=== PATIENT | female | born 1990 | race Caucasian/White ===

== ENCOUNTER 2020-08-08 08:11 | Outpatient (REF) | payer OTHER, SELFPAY | END 2020-08-08 08:12 | disposition home or self-care (01) | LOC: CF 08:11 | PROVIDERS: PCP Physician Assistant; Referring Provider Physician Assistant; Visit Provider Advanced Practice Midwife | DX: Z01.419 Encounter for gynecological examination (general) (routine) without abnormal findings (principal); Z30.09 Encounter for other general counseling and advice on contraception | CPT/HCPCS: 88142; 99395 ==

== ENCOUNTER 2020-08-11 10:28 | Outpatient (REF) | payer OTHER, SELFPAY ==
[2020-08-11 17:14] LABS: COVID-19 Test Negative (Negative)
== END 2020-08-11 10:29 | disposition home or self-care (01) ==
LOC: HO.LAB 10:28
PROVIDERS: Visit Provider Internal Medicine
DX: Z20.828 Contact with and (suspected) exposure to other viral communicable diseases (principal)
CPT/HCPCS: 36415; 87635

== ENCOUNTER 2020-08-25 09:09 | Outpatient (REF) | payer OTHER, SELFPAY ==
[2020-08-25 09:27] LABS: COVID-19 Test Negative (Negative)
== END 2020-08-25 09:10 | disposition home or self-care (01) ==
LOC: HO.LAB 09:09
PROVIDERS: Visit Provider Internal Medicine
DX: Z20.828 Contact with and (suspected) exposure to other viral communicable diseases (principal)
CPT/HCPCS: 87635

== ENCOUNTER → 2020-10-21 11:46 | Outpatient (BNVA) | payer OTHER, SELFPAY | PROVIDERS: Visit Provider Advanced Practice Midwife | DX: Z30.433 Encounter for removal and reinsertion of intrauterine contraceptive device (principal) | CPT/HCPCS: 58300; 58301 ==

== ENCOUNTER 2020-11-25 16:40 | Outpatient (REF) | payer OTHER, SELFPAY | END 2020-11-25 16:41 | disposition home or self-care (01) | LOC: HO.LAB 16:40 | PROVIDERS: Visit Provider Internal Medicine | DX: Z20.822 Contact with and (suspected) exposure to COVID-19 (principal) | CPT/HCPCS: 36415; C9803; U0003 ==

== ENCOUNTER 2020-12-25 07:47 | Outpatient (REF) | payer OTHER, SELFPAY ==
[2020-12-25 07:58] LABS: COVID-19 Test Positive (Negative)
== END 2020-12-25 07:48 | disposition home or self-care (01) ==
LOC: HO.EMPCOV 07:47
PROVIDERS: Visit Provider Internal Medicine
DX: Z20.822 Contact with and (suspected) exposure to COVID-19 (principal)
CPT/HCPCS: 36415; 87635; C9803

== ENCOUNTER 2021-08-20 08:35 | Emergency (ER) | payer OTHER, MEDICAID, SELFPAY ==
[2021-08-20 09:06] VITALS: BP 132/74; PULSE 71; RESP 18; TEMP 36.9; O2SAT 96; BMI 31.6
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
== END 2021-08-20 10:08 | disposition home or self-care (01) ==
PROVIDERS: Emergency Provider Emergency Medicine
DX: Z04.1 Encounter for examination and observation following transport accident (principal)
CPT/HCPCS: 99283

== ENCOUNTER 2023-06-07 08:32 | Outpatient (AMB) | payer OTHER, SELFPAY ==
--- NOTE | 2023-06-07 08:34 | MHC.OFFVIS ---
Intake Vital Signs 06/07/23 08:36 Height 5 ft 5 in Weight 192 lb BMI 31.9 BP 120/76 Intake Visit Reasons: Annual/ ? IUD removal Intake Note: patient wants to remove IUD The patient agreed to use of a emergency medical dispatcher during this encounter. Scribed for APRIL Barrett by Tiera Dorantes emergency medical dispatcher, on 06/07/2023 at 8:45 am EST. General Counselor: General Counselor Present (Suzette) Allergies No Known Allergies Allergy (Verified 06/07/23 08:37) HPI HPI Comments History of Present Illness Details She is a premenopausal woman presenting for annual exam and IUD removal due to planning a future next year. She admits to eating healthy and tries to stay active with exercise. Currently not sexually active due to being incarcerated but will be released next year April. Hx of constipation while taking iron RX. Denies vaginal itching and irritation. Admits vaginal discharge. STD screening offered; she accepts. STD blood work offered; she declines. Denies family hx of breast, colon and ovarian cancer. Last pap smear 08/08/20. See procedure note. [facility] Medical History Asthma Depression with anxiety Surgical History No history of previous surgery Family History Father HTN (hypertension) Skin cancer Insomnia Maternal Grandmother Diabetes mellitus HTN (hypertension) Multiple myeloma Obese Paternal Grandmother Oral cancer Mother HTN (hypertension) Maternal Grandfather No problems noted. Paternal Grandfather No problems noted. Sister No problems noted. Son No problems noted. Son No problems noted. Social History Household Members: Children Household Members Other:: 2 sons (7 and 5 y/o in 2019) Alcohol intake: never Sexual orientation: Straight/Heterosexual Gender identity: Female Female Reproductive History Menstrual Total pregnancies: 2 Full term: 2 Number of Living Children: 2 Date of last pap smear: 08/08/20 (neg) Physical Exam Vital Signs: Last Vital Signs BP 120/76 06/07/23 08:36 BMI result Body Mass Index 31.9 Const General: cooperative, healthy appearing, no acute distress, well developed and alert Orientation/consciousness: patient oriented x3 HEENT Head: Yes normal to inspection Eyes General: appearance normal, both eyes and all related structures Neck Neck: Yes normal visual inspection Thyroid: Thyroid normal Chest Chest palpation & inspection: normal inspection of the chest Breast/axilla inspection: normal inspection of the breasts (no puckering, dimpling, peau de orange, retraction, discharge, masses) Breast/axilla palpation: normal palpation of the breasts Resp Effort & Inspection: normal respiratory effort GI Inspection: Yes normal to inspection Palpation (GI): Soft to palpation (to palpation) Rectal Exam - Female: deferred General: Yes bladder normal to inspection External Female Exam: normal external appearance and normal appearance of the urethra Speculum Exam - Vagina: normal appearance of the vagina, normal palpation and normal vaginal discharge Speculum Exam - Cervix: normal appearance of the cervix, normal palpation and Other cervical findings present (bled slightly with pap; IUD strings visible) Bimanual exam- vagina & uterus: normal palpation and normal palpation Bimanual Exam- Adnexa, other: normal adnexae and no masses Skin General skin exam: no rashes or lesions noted Neuro General: patient oriented x3 Cognition (Neuro): normal cognition Extrem General: Yes normal to inspection Psych Attitude: cooperative Thought process: Normal thought process present Office Procedures IUD Insert/Removal Details Details: HPI She was counseled and consented for procedure. She is aware of risks for bleeding, pain, infection, and injury to bowel or bladder. Procedure The patient was placed in the dorsal lithotomy position. A speculum was inserted vaginally, and the cervix and strings were visualized at the os. A ring forcep was utilized, and the patient was asked to give a deep cough while the strings were grasped and gently tugged at the same time, removing the IUD device intact. Minimal bleeding was observed. All of the equipment was removed. The patient tolerated the procedure well and left the office in good condition. IUD successfully removed today. Plan Monitor and track periods. Warnings reviewed with patient. Instructions given to call if temp >100.4, flu like sx, SOB, fatigue, lightheadedness/dizziness, abd pain, bloating or abd distention, bowel changes including rectal bleeding, bladder changes, foul odor or heavy vaginal bleeding. She will call office with any questions or concerns. [id number] Removal Procedure code (CPT) selection complete Assessment & Plan Assessment & Plan (1) Well woman exam with routine gynecological exam: Code(s): Z01.419 - Encounter for gynecological examination (general) (routine) without abnormal findings Plan: Discussed: Current recommendations for pap smears per ASCCP guidelines Breast awareness and periodic self breast exams. Maintaining a healthy lifestyle including a well balanced diet and routine exercise. Monitor menses, use of a Flow Shahnaz. PNV RX sent to pharmacy. All of her questions and concerns were addressed to the best of my ability. RTO in one year for AG. See procedure note. (2) Vaginal discharge: Code(s): N89.8 - Other specified noninflammatory disorders of vagina (3) Encounter for IUD removal: Code(s): Z30.432 - Encounter for removal of intrauterine contraceptive device Orders: Orders Bacterial Vaginosis Panel Today N89.8 - Other specified noninflammatory disorders of vagina CT NG by PCR Today N89.8 - Other specified noninflammatory disorders of vagina, Z20.2 - Contact with and (suspected) exposure to infections with a predominantly sexual mode of transmission Pap Smear Today Z01.419 - Encounter for gynecological examination (general) (routine) without abnormal findings Medications: New PNV,calcium [id number] acid 27 mg iron- 1 mg ( Vitamins Plus Low Iron) 1 tab PO DAILY 90 tabs 4RF Coding Level of Care Code Est Pt Prev Care [id number]) Diagnoses Well woman exam with routine gynecological exam Z01.419 Vaginal discharge N89.8 Encounter for IUD removal Z30.432 CPT Codes Details - CPT: 43695-VGS Removal ([id number]) Comment Add a modifier for IUD removal
[2023-06-07 08:36] VITALS: BP 120/76; BMI 31.9
== END 2023-06-07 09:06 | disposition home or self-care (01) ==
PROVIDERS: Visit Provider Advanced Practice Midwife
DX: Z01.419 Encounter for gynecological examination (general) (routine) without abnormal findings (principal); N89.8 Other specified noninflammatory disorders of vagina; Z30.432 Encounter for removal of intrauterine contraceptive device
CPT/HCPCS: 58301; 99395

== ENCOUNTER 2023-06-07 08:32 | Outpatient (REF) | payer OTHER, SELFPAY | END 2023-06-07 08:33 | disposition home or self-care (01) | LOC: HO.LAB 08:32 | PROVIDERS: Visit Provider Advanced Practice Midwife | DX: Z01.419 Encounter for gynecological examination (general) (routine) without abnormal findings (principal); N89.8 Other specified noninflammatory disorders of vagina; Z30.432 Encounter for removal of intrauterine contraceptive device | CPT/HCPCS: 58301 ==

== ENCOUNTER 2023-06-07 08:56 | Outpatient (REF) | payer OTHER, SELFPAY ==
[2023-06-14 06:34] LABS: HPV mRNA E6/E7 rflx Not Detected (Not Detected)
== END 2023-06-07 08:57 | disposition home or self-care (01) ==
LOC: HO.LNP 08:56
PROVIDERS: Visit Provider Advanced Practice Midwife
DX: N89.8 Other specified noninflammatory disorders of vagina (principal); Z20.2 Contact with and (suspected) exposure to infections with a predominantly sexual mode of transmission
CPT/HCPCS: 87624; 88142

== ENCOUNTER 2023-06-07 15:46 | Outpatient (REF) | payer OTHER, SELFPAY ==
[2023-06-08 15:33] LABS: BV Int Neg Control Negative (Negative); BV Int Pos Control Positive (Positive)
[2023-06-09 12:37] LABS: CT PCR NOT DETECTED (Not Detect.); NG PCR NOT DETECTED (Not Detect.)
== END 2023-06-07 15:47 | disposition home or self-care (01) ==
LOC: HO.LNP 15:46
PROVIDERS: Visit Provider Advanced Practice Midwife
DX: N89.8 Other specified noninflammatory disorders of vagina (principal); Z20.2 Contact with and (suspected) exposure to infections with a predominantly sexual mode of transmission
CPT/HCPCS: 0353U; 87480; 87510; 87660

== ENCOUNTER 2023-07-08 09:11 | Outpatient (AMB) | payer OTHER, SELFPAY ==
--- NOTE | 2023-07-08 08:53 | A.OFFPC_ITS ---
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 Intake Note: Pt is here today as a New Patient to est care and for her PE Is last menstrual period known: Yes Last menstrual period: 06/27/23 Allergies No Known Allergies Allergy (Verified 07/08/23 09:25) Medication List - Last Reconciled 07/08/23 by Arti June MD PNV,calcium 47-inpa-qpxcc acid 27 mg iron- 1 mg ( Vitamins Plus Low Iron) 1 tab PO DAILY valacyclovir (Valtrex) 500 mg PO BID PRN 3 days Tobacco use date assessed: 07/08/23 Dental Screening Dental Screen Date: 07/08/23 Did you have a dental visit in the last 12 months?: Yes Did you have a dental problem in the last 6 months where you did not have access to dental care?: No Was dental information given to patient?: 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 She has exercise-induced bronchospasm, has had since childhood when she was playing sports, would like a refill on her albuterol inhaler . Has history of depression and anxiety, does not want to start any medication at present time or see a therapist, does not feel the need for one, as she is able to control it through behavioral techniques. Has history of genital warts, would like a prescription for about checks to have on hand as needed. Rarely gets any outbreaks. [facility] Medical History Depression with anxiety Exercise induced bronchospasm History of wrist fracture Hx of herpes genitalis Obesity (BMI 30.0-34.9) Surgical History History of surgery on right wrist Family History Father HTN (hypertension) Skin cancer Insomnia Substance use disorder Mental health disorder Maternal Grandmother Diabetes mellitus HTN (hypertension) Multiple myeloma Obese Mental health disorder Paternal Grandmother Oral cancer Mental health disorder Mother HTN (hypertension) Substance use disorder Mental health disorder Maternal Grandfather Substance use disorder Mental health disorder Paternal Grandfather Mental health disorder Sister Substance use disorder Mental health disorder Son No problems noted. Son No problems noted. Paternal Uncle Substance use disorder Mental health disorder Social History Household Members: Children Household Members Other:: 2 sons (7 and 5 y/o in 2020) Housing: House Alcohol intake: never Patient Tobacco Use Status: Never used Tobacco e-Cigarette/Vaping Use: Never Used service: No Current occupational status: employed Sexual orientation: Straight/Heterosexual Gender identity: Female Cognitive needs: No Hearing needs: No Vision needs: Yes Female Reproductive History Menstrual Date of last menstrual period: 06/27/23 Questionnaire PHQ-9 Over the last 2 weeks, how often have you been bothered by any of the following problems? 1. Little interest or pleasure in doing things: not at all 2. Feeling down, depressed, or hopeless: several days 3. Trouble falling or staying asleep, or sleeping too much: more than half the days 4. Feeling tired or having little energy: several days 5. Poor appetite or overeating: several days 6. Feeling bad about yourself - or that you are a failure or have let yourself or your family down: not at all 7. Trouble concentrating on things, such as reading the newspaper or watching television: several days 8. Moving or speaking so slowly that other people could have noticed. Or the opposite - being so fidgety or restless that you have been moving around a lot more than usual: not at all 9. Thoughts that you would be better off or of hurting yourself in some way: not at all Total score: 6 Depression Screening Interpretation: Positive (Intermittent, declines starting medication at present time able to control through behavioral techniques, declines referral for counseling ) Depression Screening Follow-up: Existing condition 62090 - PHQ-9 Billing: Yes Source: Developed by Drs. Gene Iverson, Sydney Ponce, Jacob Rodas and colleagues, with an educational evelina from [employer]. Thrive Questionnaire Date Thrive assessed: 07/08/23 I am a: Patient What is your living situation today?: I have a steady place to live Within the past 12 months, did the food you bought not last and you didn't have the money to get more?: Never true Within the past 12 months, did you worry whether your food would run out before you got money to buy more?: Never true Do you have trouble paying for medicines?: No Do you have trouble getting transportation to medical appointments?: No Do you have trouble paying your heating and electricity bill?: No Do you have trouble taking care of your child, family member or friend?: No Do you have trouble with day-to-day activities such as bathing, preparing meals, shopping, managing finances, etc.?: No Are you currently unemployed and looking for a job?: No Are you interested in more education?: No AUDIT C Alcohol Use Questionnaire (AUDIT-C) 1. How often do you have a drink containing alcohol?: Never Total Score: 0 SOM-7 AMB Questionnaire SOM-7 Date SOM - 7 assessed: 07/08/23 Feeling nervous, anxious, or on edge: 0 = Not at all Not being able to stop or control worryin = Not at all Worrying too much about different things: 0 = Not at all Trouble relaxin = Not at all Being so restless that it is hard to sit still: 0 = Not at all Becoming easily annoyed or irritable: 0 = Not at all Feeling afraid as if something awful might happen: 0 = Not at all Total SOM-7 score (0-4 normal; 5-9 mild; 10-14 moderate; 15-21 severe): 0 Source: Developed by Drs. Gene Iverson, Sydney Ponce, Jacob Rodas and colleagues, with an educational evelina from [employer]. SOM-7 Assessment Billing SOM-7 Assessment Tool: SOM-7 Assessment 52775 Review of Systems Const Denies body aches, Reports difficulty sleeping (Maintaining sleep), Denies fatigue, Denies fever(s), Denies headache(s), Denies lethargy, Denies stops breathing during sleep and Denies weakness Eyes Details: Goes to [facility] Reports blurry vision (Myopia), Denies change in vision, Denies eye discharge, Denies itchy eyes and Reports requires corrective lenses ENT Denies dizziness, Denies headache(s), Denies nasal congestion, Denies nasal discharge and Denies sore throat Card Denies chest pain, Denies lightheadedness, Denies palpitations and Denies dyspnea Resp Denies chest congestion, Denies cough, Denies dyspnea and Denies wheezing GI Denies abdominal pain, Denies change in bowel habits and Denies heartburn Denies hematuria, Denies urinary frequency, Denies dysuria and Denies urinary urgency Musc Details: Occasional right knee pain swelling Skin/Breast Denies breast pain, Denies breast mass, Denies lesions and Denies rash Neuro Denies dizziness, Denies headache(s) and Denies weakness Psych Reports as per HPI and Reports anxiety (Situational) Endo Denies fatigue, Denies polydipsia, Denies polyuria and Denies palpitations Donny/Lymph Denies easy bruising Aller/Immun Denies itchy eyes, Denies seasonal rhinorrhea and Denies wheezing Physical exam (Primary Care) Vital Signs: Last Vital Signs Pulse 79 07/08/23 08:58 BP 120/82 07/08/23 08:58 Pulse Ox 98 07/08/23 08:58 Oxygen Delivery Method Room Air 07/08/23 08:58 BMI result Body Mass Index 31.8 BMI Assessment/Plan discussion: High BMI High, discussed plan: dietary and physical activity Tobacco/Smoking Status: Tobacco use Status Tobacco use date assessed 07/08/23 07/08/23 08:58 Patient Tobacco Use Status Never used Tobacco 07/08/23 09:16 e-Cigarette/Vaping Use Never Used 07/08/23 09:16 PHQ-9: PHQ-9 Score PHQ-9: Total score 6 07/11/23 16:53 Depression Screening Interpretation: Positive (Intermittent, declines starting medication at present time able to control through behavioral techniques, declines referral for counseling ) Depression Screening Follow-up: Existing condition Thrive Assessment: Date of Thrive Assessment Date Thrive assessed 07/08/23 07/08/23 08:58 Const General: healthy appearing, comfortable and no acute distress Nutritional Appearance: obese Orientation/consciousness: patient oriented x3 HENMT Head: Yes normocephalic General nose exam: Normal external nose present Face and sinus: Yes face symmetric Mouth: Normal oral and palatal mucosa present, tongue normal, oropharynx normal and moist mucous membranes Teeth and gingiva: dentition normal Eyes General: appearance normal, both eyes and all related structures Periorbital: periorbital findings normal Eyelids: Yes eyelids normal Conjunctivae: conjunctivae normal Sclerae: sclerae normal Pupils: Equal, round and reactive pupils present EOM: EOMs intact bilaterally Neck Neck: Yes full ROM and Yes no lymphadenopathy Thyroid: Thyroid normal (Nonpalpable) Chest Chest palpation & inspection: normal inspection of the chest and normal palpation of entire chest wall Breast/axilla palpation: normal palpation of the breasts Resp Effort & Inspection: normal respiratory effort and able to speak in complete sentences Auscultation: clear to auscultation bilaterally Cardio Rate: regular rate Rhythm: regular rhythm Heart sounds: S1 normal heart sound present and S2 normal heart sound present GI Palpation (GI): Soft to palpation, nontender, no guarding and no masses Auscultation: normal bowel sounds Other: Goes to [facility] [place] [facility] General: Yes no CVA tenderness Back/Spine/Pelvis Back: no CVA tenderness and No back tenderness Skin General skin exam: no rashes or lesions noted Neuro General: patient oriented x3, gait normal, tone normal, Normal light touch and pain sensation, no focal motor deficits and CN's II-XI intact bilaterally Cranial nerves: Yes Equal, round and reactive pupils present Cognition (Neuro): normal cognition Gait exam (Neuro): Normal gait present Psych Appearance: grossly normal and well kempt Mental Status: mental status grossly normal Speech and movement: Normal speech and movement present Affect: normal affect Attitude: cooperative Thought process: Normal thought process present Thought content: Normal thought content present Immunizations Boostrix Tdap Performing Provider: Arti June MD Administered by: Belle Mitchell CMA on 07/08/23 09:25 Dose Route Admin Location Lot Number Expiration Date NDC Wagon [employer] 0.5 mL IM Right Deltoid [id number] 08/17/25 [id number] [employer] VIS Given Date VIS Provided VIS Publication Date 07/08/23 Single Vaccine 21 Eligibility Eligibility Date Funding Source Not VFC Eligible 07/08/23 Private Assessment and Plan Assessment & Plan (1) Annual visit for general adult medical examination with abnormal findings: Code(s): Z00.01 - Encounter for general adult medical examination with abnormal findings Plan: Will check appropriate labs. Continue dental visit every 6 months and regular eye exams, at least every 2 years. Take adequate calcium in diet and vitamin-D 3 at 2000 IU per cap once a day, in addition to weight-bearing exercises to help maintain good muscle tone and weight control. Instructed to do self-breast exam, and recommended to get yearly mammogram, starting at age 40. Goes to [facility] [place] for her routine Pap and pelvic exam, up-to-date . Declines getting COVID vaccinations and flu shots, Tdap given today (2) Exercise induced bronchospasm: Code(s): J45.990 - Exercise induced bronchospasm Plan: Prescription sent for her albuterol inhaler 2 inhalations every 6 hours as needed for episodes of bronchospasm/wheezing (3) Obesity (BMI 30.0-34.9): Code(s): E66.9 - Obesity, unspecified Plan: Recommended focusing on improving your health instead of dieting. : Eat Mediterranean diet, limit foods high in fat, sugar, and calories, eat slowly, pay attention to portion sizes, plan your meals ahead of time, start regular physical activity 150 minutes of moderate intensity exercise or 90 minutes/week of vigorous exercise and increase water intake. Rx also sent for phentermine 30 mg per capsule to take once a day to help with weight loss, will check weight again in a month or starting medication Orders: Orders Alanine Aminotransferase 07/08/23 E66.9 - Obesity, unspecified, J45.990 - Exercise induced bronchospasm, Z00.01 - Encounter for general adult medical examination with abnormal findings Aspartate Amino Transferase 07/08/23 E66.9 - Obesity, unspecified, J45.990 - Exercise induced bronchospasm, Z00.01 - Encounter for general adult medical examination with abnormal findings Basic Metabolic Panel Fasting 07/08/23 E66.9 - Obesity, unspecified, J45.990 - Exercise induced bronchospasm, Z00.01 - Encounter for general adult medical examination with abnormal findings Lipid Panel 07/08/23 E66.9 - Obesity, unspecified, J45.990 - Exercise induced bronchospasm, Z00.01 - Encounter for general adult medical examination with abnormal findings Vitamin D 25-OH Total 07/08/23 E66.9 - Obesity, unspecified, J45.990 - Exercise induced bronchospasm, Z00.01 - Encounter for general adult medical examination with abnormal findings Complete Blood Count Auto Diff 07/08/23 E66.9 - Obesity, unspecified, J45.990 - Exercise induced bronchospasm, Z00. - Encounter for general adult medical examination with abnormal findings TDaP Immunization 07/08/23 Z23 - Encounter for immunization Medications: New albuterol sulfate 90 mcg/actuation 2 inhalations inhalation Q6H PRN 1 ea 1RF shortness of breath or wheezing J45.990 - Exercise induced bronchospasm phentermine must administer 2 hours after breakfast 30 mg PO DAILY 30 caps 0RF Coding Level of Care Code New Pt Prev Care 18-39yr(93037 Diagnoses Annual visit for general adult medical examination with abnormal findings Exercise induced bronchospasm J45.990 Obesity (BMI 30.0-34.9) E66.9 Additional Codes SOM-7 Assessment Billing - SOM-7 Assessment Tool: SOM-7 Assessment 81708 ([id number])
[2023-07-08 08:58] VITALS: BP 120/82; PULSE 79; O2SAT 98; BMI 31.8
== END 2023-07-08 12:24 | disposition home or self-care (01) ==
PROVIDERS: Visit Provider Internal Medicine
DX: Z23 Encounter for immunization (principal)
CPT/HCPCS: 90471; 90715; 99385

== ENCOUNTER 2023-07-19 08:18 | Outpatient (REF) | payer OTHER, SELFPAY ==
[2023-07-19 11:22] LABS: MANUAL DIFF FLAG NO
[2023-07-19 12:07] LABS: Alanine Aminotransferase 19 U/L (0-31); Anion Gap 11 (12-20); Aspartate Amino Transferase 21 U/L (5-31); Basophils Percent Auto 0.3 % (0-2); Blood Urea Nitrogen 8 mg/dL (9-16); Calcium 9.4 mg/dL (8.4-10.2); Carbon Dioxide 25 mmol/L (22-29); Chloride 107 mmol/L (96-108); Cholesterol 201 mg/dL (<200); Eosinophils Absolute Auto 0.1 X10*3/uL (0.0-0.4); Eosinophils Percent Auto 1.2 % (0-4); Estimated Glomerular Filt Rate > 60; Glucose Fasting 97 mg/dL (60-99); HDL Cholesterol 52 mg/dL (>40); Hematocrit 39.7 % (37.0-47.0); Hemoglobin 13.4 g/dl (12.0-16.0); Imm Gran Abs Auto 0.02 X10*3/uL (0.00-0.03); Imm Gran Pct Auto 0.3 % (0.0-0.4); LDL Cholesterol Calculated 135 mg/dL (<100); Lymphocytes Absolute Auto 1.9 X10*3/uL (1.2-4.9); Lymphocytes Percent Auto 27.8 % (20-40); Mean Corpuscular HGB Conc 33.8 g/dl (31.0-35.0); Mean Corpuscular Hemoglobin 30.5 pg (27.0-33.0); Mean Corpuscular Volume 90.2 fL (80.0-98.0); Monocytes Absolute Auto 0.4 X10*3/uL (0.1-1.2); Monocytes Percent Auto 6.3 % (2-11); Neutrophils Absolute Auto 4.4 x10*3/uL (2.0-8.3); Neutrophils Percent Auto 64.1 % (45-73); Platelet Count 148 X10*3/uL (160-400); Potassium 3.8 mmol/L (3.3-5.1); Red Cell Distribution Width 12.6 % (11.0-16.0); Sodium 139 mmol/L (135-145); Triglycerides 74 mg/dL (<150); White Blood Count 6.9 X10*3/uL (4.8-10.8)
[2023-07-19 12:10] LABS: Vitamin D 25-OH Total 26.1 ng/mL (>30)
[2023-07-19 13:23] LABS: Binax Internal Control QC Valid; Binax Now Covid-19 Ag Negative (Negative); Binax Performed by: PAULP
== END 2023-07-19 08:19 | disposition home or self-care (01) ==
LOC: HO.HMGCLDS 08:18
PROVIDERS: PCP Internal Medicine; Visit Provider Internal Medicine
DX: Z00.01 Encounter for general adult medical examination with abnormal findings (principal); Z20.822 Contact with and (suspected) exposure to COVID-19; E66.9 Obesity, unspecified; J45.990 Exercise induced bronchospasm
CPT/HCPCS: 36415; 80048; 80061; 82306; 84450; 84460; 85025; 87811; C9803

== ENCOUNTER 2023-09-27 14:49 | Outpatient (REF) | payer OTHER, SELFPAY ==
[2023-09-27 15:10] LABS: Binax Internal Control QC Valid; Binax Now Covid-19 Ag Negative (Negative); Binax Performed by: PAULP
== END 2023-09-27 14:50 | disposition home or self-care (01) ==
LOC: HO.HMGCLDS 14:49
PROVIDERS: PCP Internal Medicine; Visit Provider Nurse Practitioner Primary Care
DX: Z11.52 Encounter for screening for COVID-19 (principal); R05.9 Cough, unspecified
CPT/HCPCS: 87811; C9803

== ENCOUNTER 2024-02-08 11:45 | Outpatient (AMB) | payer OTHER, SELFPAY ==
[2024-02-08 12:05] VITALS: BP 118/84; PULSE 69; O2SAT 99; BMI 33.3
--- NOTE | 2024-02-08 12:05 | MHC.PC.OV ---
Vital Signs 02/08/24 12:05 Height 5 ft 5 in Weight 200 lb BMI 33.3 BP 118/84 Blood Pressure Location Rt brachial Position Sitting Pulse 69 Pulse Source Pulse Oximeter Pulse Oximetry (%) 99 Oxygen Delivery Method Room Air Intake Visit Reasons: Weight loss Intake Note: Pt is here today concern regarding her weight Allergies No Known Allergies Allergy (Verified 02/08/24 13:47) Medication List - Last Reconciled 02/08/24 by Arti June MD hydroxyzine HCl 10 mg PO BEDTIME phentermine 30 mg PO DAILY Tobacco use date assessed: 02/08/24 Dental Screening Dental Screen Date: 02/08/24 HPI Weight loss HPI Details 33-year-old lady here today for follow-up. Has been having hard time losing weight. Initially was placed on phentermine 30 mg daily which has been helping curb her appetite however it has also caused some problems with initiating sleep. She has stopped taking phentermine but gained all the weight back that she lost initially. She has also been having a lot of anxiety attacks, under lot of stress at work and at home. Patient admits to have been stress eating, skips breakfast, eats snacks during the day and tends to eat a bigger meal at night and does a lot of bedtime snacking. [facility] Medical History (Updated 02/08/24 @ 13:59 by Arti June MD) Mixed anxiety and depressive disorder Vitamin D deficiency Hypercholesterolemia without hypertriglyceridemia Thrombocytopenia History of wrist fracture Hx of herpes genitalis Obesity (BMI 30.0-34.9) Exercise induced bronchospasm Depression with anxiety Surgical History History of surgery on right wrist Family History Father HTN (hypertension) Skin cancer Insomnia Substance use disorder Mental health disorder Maternal Grandmother Diabetes mellitus HTN (hypertension) Multiple myeloma Obese Mental health disorder Paternal Grandmother Oral cancer Mental health disorder Mother HTN (hypertension) Substance use disorder Mental health disorder Maternal Grandfather Substance use disorder Mental health disorder Paternal Grandfather Mental health disorder Sister Substance use disorder Mental health disorder Son No problems noted. Son No problems noted. Paternal Uncle Substance use disorder Mental health disorder Social History Household Members: Children Household Members Other:: 2 sons (7 and 5 y/o in 2020) Housing: House Alcohol intake: never Patient Tobacco Use Status: Never used Tobacco e-Cigarette/Vaping Use: Never Used service: No Current occupational status: employed Sexual orientation: Straight/Heterosexual Gender identity: Female Cognitive needs: No Hearing needs: No Vision needs: Yes Questionnaire PHQ-9 Over the last 2 weeks, how often have you been bothered by any of the following problems? 1. Little interest or pleasure in doing things: not at all 2. Feeling down, depressed, or hopeless: several days 3. Trouble falling or staying asleep, or sleeping too much: more than half the days 4. Feeling tired or having little energy: more than half the days 5. Poor appetite or overeating: nearly every day 6. Feeling bad about yourself - or that you are a failure or have let yourself or your family down: not at all 7. Trouble concentrating on things, such as reading the newspaper or watching television: not at all 8. Moving or speaking so slowly that other people could have noticed. Or the opposite - being so fidgety or restless that you have been moving around a lot more than usual: not at all 9. Thoughts that you would be better off or of hurting yourself in some way: not at all Total score: 8 Depression Screening Interpretation: Positive (Does not want to start any maintenance medication for depression, declined referral for counseling) Depression Screening Follow-up: Existing condition, New Medication prescribed and Community Mental Health Worker F/U Depression Screening Done: Yes 87172 - PHQ-9 Billing: Yes Source: Developed by Drs. Gene Iverson, Sydney Ponce, Jacob Rodas and colleagues, with an educational evelina from [employer]. Thrive Questionnaire Date Thrive assessed: 02/08/24 I am a: Patient What is your living situation today?: I have a steady place to live Within the past 12 months, did the food you bought not last and you didn't have the money to get more?: Never true Within the past 12 months, did you worry whether your food would run out before you got money to buy more?: Never true Do you have trouble paying for medicines?: No Do you have trouble getting transportation to medical appointments?: No Do you have trouble paying your heating and electricity bill?: No Do you have trouble taking care of your child, family member or friend?: No Do you have trouble with day-to-day activities such as bathing, preparing meals, shopping, managing finances, etc.?: No Are you currently unemployed and looking for a job?: No Are you interested in more education?: No THRIVE Score: 0 AUDIT C Alcohol Use Questionnaire (AUDIT-C) 1. How often do you have a drink containing alcohol?: Never Total Score: 0 SOM-7 AMB Questionnaire SOM-7 Date SOM - 7 assessed: 02/08/24 Feeling nervous, anxious, or on edge: 3 = Nearly every day Not being able to stop or control worryin = Nearly every day Worrying too much about different things: 3 = Nearly every day Trouble relaxin = Nearly every day Being so restless that it is hard to sit still: 0 = Not at all Becoming easily annoyed or irritable: 3 = Nearly every day Feeling afraid as if something awful might happen: 0 = Not at all Total SOM-7 score (0-4 normal; 5-9 mild; 10-14 moderate; 15-21 severe): 15 Source: Developed by Drs. Gene Iverson, Sydney Ponce, Jacob Rodas and colleagues, with an educational evelina from [employer]. SOM-7 Assessment Billing SOM-7 Assessment Tool: SOM-7 Assessment 34237 (Started on hydroxyzine to take as needed) Review of Systems Const Denies body aches, Reports difficulty sleeping (Maintaining sleep), Denies fever(s), Denies lethargy, Denies weakness and Reports weight gain Eyes Details: Goes to [facility]NT Reports no additional complaints Card Denies chest pain, Denies lightheadedness and Denies dyspnea Resp Denies chest congestion, Denies cough and Denies dyspnea Neuro Denies weakness Psych Reports as per HPI Physical exam (Primary Care) Vital Signs: Last Vital Signs Pulse 69 02/08/24 12:05 BP 118/84 02/08/24 12:05 Pulse Ox 99 02/08/24 12:05 Oxygen Delivery Method Room Air 02/08/24 12:05 BMI result Body Mass Index 33.3 BMI Assessment/Plan discussion: High BMI High, discussed plan: dietary and physical activity Tobacco/Smoking Status: Tobacco use Status Tobacco use date assessed 02/08/24 02/08/24 12:23 Patient Tobacco Use Status Never used Tobacco 02/08/24 12:07 e-Cigarette/Vaping Use Never Used 02/08/24 12:07 PHQ-9: PHQ-9 Score PHQ-9: Total score 8 02/08/24 12:59 Depression Screening Interpretation: Positive (Does not want to start any maintenance medication for depression, declined referral for counseling) Depression Screening Follow-up: Existing condition, New Medication prescribed and Community Mental Health Worker F/U Thrive Assessment: Date of Thrive Assessment Date Thrive assessed 02/08/24 02/08/24 12:31 Const General: comfortable and no acute distress Nutritional Appearance: obese Orientation/consciousness: patient oriented x3 HENMT Head: Yes normocephalic General nose exam: Normal external nose present Face and sinus: Yes face symmetric Eyes General: appearance normal, both eyes and all related structures Neck Neck: Yes full ROM and Yes no lymphadenopathy Thyroid: Thyroid normal (Nonpalpable) Resp Effort & Inspection: normal respiratory effort and able to speak in complete sentences Neuro General: patient oriented x3, gait normal, tone normal, Normal light touch and pain sensation, no focal motor deficits and CN's II-XI intact bilaterally Cognition (Neuro): normal cognition Gait exam (Neuro): Normal gait present Psych Appearance: grossly normal and well kempt Mental Status: mental status grossly normal Speech and movement: Normal speech and movement present Affect: normal affect Attitude: cooperative Thought process: Normal thought process present Thought content: Normal thought content present Assessment and Plan Assessment & Plan (1) Obesity (BMI 30.0-34.9): Code(s): E66.9 - Obesity, unspecified Plan: Placed back on phentermine 30 mg per capsule to take once a day in the morning. Combined this with adherence to healthy eating habits and getting regular exercise, do not skip breakfast or lunch, avoid bedtime snacking, eating a lot of junk foods e.g. potato chips, Gabonese fries. (2) Mixed anxiety and depressive disorder: Code(s): F41.8 - Other specified anxiety disorders Plan: Does not want to start any medications at present time that she needs to take every day. Declines referral for counseling, will give her a prescription for hydroxyzine 10 mg per tablet, to try taking initially half a tablet or 5 mg at bedtime to help her sleep at night and may take an extra dose as needed during the day for acute anxiety attacks. Patient cautioned that side effects of this medicine is drowsiness, do not drive until she you know how this medicine will affect you Medications: New phentermine must administer 2 hours after breakfast 30 mg PO DAILY 30 caps 0RF hydroxyzine HCl 10 mg PO BEDTIME 30 tabs 0RF Difficulty sleeping Coding Level of Care Code Est Pt Level 4 (26042) Diagnoses Obesity (BMI 30.0-34.9) E66.9 Mixed anxiety and depressive disorder F41.8 Additional Codes SOM-7 Assessment Billing - SOM-7 Assessment Tool: SOM-7 Assessment 29650 ([id number])
== END 2024-02-08 13:50 | disposition home or self-care (01) ==
PROVIDERS: PCP Internal Medicine; Visit Provider Internal Medicine
DX: F41.8 Other specified anxiety disorders (principal); E66.9 Obesity, unspecified; Z68.33 Body mass index [BMI] 33.0-33.9, adult
CPT/HCPCS: 96127; 99214

== ENCOUNTER 2024-02-27 15:03 | Outpatient (REF) | payer OTHER, SELFPAY ==
--- NOTE | ~2024-02-27 | US_ITS ---
EXAMINATION: US PELVIS CLINICAL INFORMATION: Pelvic and perineal pain LMP (irregular, one week ago COMPARISON: Pelvic ultrasound 03/24/2013 TECHNIQUE: Ultrasound of the pelvis is performed using both transabdominal and transvaginal transducers along with Doppler. Transvaginal imaging is performed due to inadequate visualization transabdominally. FINDINGS: Uterus: The uterus is anteverted and measures 9.5 x 3.9 x 5.7 cm. No focal fibroid The endometrial thickness is 0.6 cm Adnexa: Both ovaries are visualized. There is normal color flow to the adnexa. There is no ovarian torsion. There is no pelvic ascites or fluid collection. Right ovary measures 3.4 x 1.8 x 2.4 cm. Volume 7.8 mL. Left ovary measures 3.2 x 2.5 x 1.9 cm. Volume 7.9 mL. US/US pelvic and transvaginal IMPRESSION: Normal pelvic ultrasound.
== END 2024-02-27 15:04 | disposition home or self-care (01) ==
LOC: HO.HMGCX 15:03
PROVIDERS: PCP Internal Medicine; Visit Provider Internal Medicine
DX: R10.2 Pelvic and perineal pain (principal); Z87.42 Personal history of other diseases of the female genital tract
CPT/HCPCS: 76830; 76856

== ENCOUNTER 2024-04-19 09:30 | Outpatient (REF) | payer OTHER, SELFPAY ==
[2024-04-19 13:27] LABS: HCG Quantitative < 2 mIU/mL
== END 2024-04-19 09:31 | disposition home or self-care (01) ==
LOC: HO.HMGCLDS 09:30
PROVIDERS: PCP Internal Medicine; Visit Provider Internal Medicine
DX: N92.6 Irregular menstruation, unspecified (principal)
CPT/HCPCS: 36415; 84702

== ENCOUNTER → 2024-08-22 10:07 | Outpatient (BNVA) | payer OTHER, SELFPAY | PROVIDERS: PCP Internal Medicine; Visit Provider Internal Medicine ==

== ENCOUNTER 2024-09-12 09:28 | Outpatient (AMB) | payer OTHER, SELFPAY ==
--- NOTE | 2024-09-12 09:29 | AM.OFFWIN_ITS ---
Intake Vital Signs 09/12/24 09:32 Weight 194 lb BP 110/76 Blood Pressure Location Rt brachial Position Sitting Pulse 88 Pulse Source Pulse Oximeter Temp 98.5 F Temp Source Oral Pulse Oximetry (%) 98 Oxygen Delivery Method Room Air Intake Visit Reasons: Congestion and bodyaches Patient Tobacco Use Status: Never used Tobacco Allergies No Known Allergies Allergy (Verified 09/12/24 09:33) HPI Congestion and bodyaches HPI Details This note is constructed using voice recognition software. While every effort has been made to ensure accuracy, conformal pad former errors may have been included. The patient is a 33 year old female who presents to the clinic today with sinus congestion and body aches for the past 2 days. She notes that yesterday she started with sinus congestion, she has been using generic Mucinex to help decrease the congestion, and then she developed body aches in her upper shoulder region bilaterally. She denies fever, chills, but does feel like she is having a fever. She does report that she has allergies, however this is not the typical time of year for her allergies. She denies cough, shortness of breath, injury to the shoulders. 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 [facility] Medical History (Updated 04/23/24 @ 11:36 by Arti June MD) Dyslipidemia Pelvic pain Mixed anxiety and depressive disorder Vitamin D deficiency Hypercholesterolemia without hypertriglyceridemia Thrombocytopenia History of wrist fracture Hx of herpes genitalis Obesity (BMI 30.0-34.9) Exercise induced bronchospasm Depression with anxiety Surgical History History of surgery on right wrist Family History Father HTN (hypertension) Skin cancer Insomnia Substance use disorder Mental health disorder Maternal Grandmother Diabetes mellitus HTN (hypertension) Multiple myeloma Obese Mental health disorder Paternal Grandmother Oral cancer Mental health disorder Mother HTN (hypertension) Substance use disorder Mental health disorder Maternal Grandfather Substance use disorder Mental health disorder Paternal Grandfather Mental health disorder Sister Substance use disorder Mental health disorder Son No problems noted. Son No problems noted. Paternal Uncle Substance use disorder Mental health disorder Social History Household Members: Children Household Members Other:: 2 sons (7 and 5 y/o in 2020) Housing: House Alcohol intake: never Patient Tobacco Use Status: Never used Tobacco e-Cigarette/Vaping Use: Never Used service: No Current occupational status: employed Sexual orientation: Straight/Heterosexual Gender identity: Female Cognitive needs: No Hearing needs: No Vision needs: Yes Review of Systems Const All systems reviewed & are unremarkable except as noted in HPI and below Physical Exam Vital Signs: Last Vital Signs Temp 98.5 F 09/12/24 09:32 Pulse 88 09/12/24 09:32 BP 110/76 09/12/24 09:32 Pulse Ox 98 09/12/24 09:32 Oxygen Delivery Method Room Air 09/12/24 09:32 Const General: cooperative, healthy appearing, comfortable, no acute distress and well developed Orientation/consciousness: patient oriented x3 Limitations: no limitations HEENT Head: Yes normal to inspection Ears: hearing grossly normal bilaterally General nose exam: Normal external nose present Face and sinus: Yes normal facial exam Throat: Yes tonsils normal (Grade 2) Eyes General: appearance normal, both eyes and all related structures Neck Neck: Yes normal visual inspection and Yes full ROM Resp Effort & Inspection: normal respiratory effort and able to speak in complete sentences Auscultation: clear to auscultation bilaterally Cardio Rate: regular rate Rhythm: regular rhythm Heart sounds: normal S1 and S2 Skin General skin exam: no rashes or lesions noted Neuro General: patient oriented x3 Assessment & Plan Assessment & Plan (1) URI (upper respiratory infection): Code(s): J06.9 - Acute upper respiratory infection, unspecified Qualifiers: URI type: unspecified URI Qualified Code(s): J06.9 - Acute upper respiratory infection, unspecified Plan: Viral swab obtained to rule out Covid based on symptoms and potential exposure. Advised mask wearing while symptomatic and quarantine per current CDC guidelines. Reviewed at home support methods including hydration, humidification, vix vapor rub, sinus rinse. Discussed treatment with antiviral therapy for covid with paxlovid including appropriate use and side effects, and need to start medication within 5 day of symptom onset, preferably within 48 hours of symptom onset. Patient wishes to decline paxlovid. Given lack of fever, we reviewed return to work. She will return for today with strick mask wear until she receives her results. Advised follow up with worsening symptoms such as dyspnea at rest, which would require emergent evaluation. Plan See above for full details and plan. Orders: Orders SARS-CoV2/FLU/RSV Today J06.9 - Acute upper respiratory infection, unspecified Coding Level of Care Code Est Pt Level 3 (40709) Diagnoses Upper respiratory tract infection, unspecified type J06.9 URI type: unspecified URI
[2024-09-12 09:32] VITALS: BP 110/76; PULSE 88; TEMP 36.9; O2SAT 98
== END 2024-09-12 10:06 | disposition home or self-care (01) ==
PROVIDERS: PCP Internal Medicine; Visit Provider Registered Nurse
DX: J06.9 Acute upper respiratory infection, unspecified (principal)

== ENCOUNTER 2024-09-12 09:28 | Outpatient (REF) | payer OTHER, SELFPAY ==
[2024-09-12 11:23] LABS: Binax Now Covid-19 Ag Negative (Negative); Binax Performed by: PAULP
[2024-09-12 11:24] LABS: Binax Internal Control QC Valid; Binax Lot number: 869104
[2024-09-12 17:31] LABS: Influenza A PCR NEGATIVE (Negative); Influenza B PCR NEGATIVE (Negative); Resp Syncy Virus RNA Qual PCR NEGATIVE (Negative); SARS COV2 PCR INHOUSE NEGATIVE (Negative)
== END 2024-09-12 09:29 | disposition home or self-care (01) ==
LOC: HO.HMGCLDS 09:28
PROVIDERS: PCP Internal Medicine; Visit Provider Registered Nurse
DX: J06.9 Acute upper respiratory infection, unspecified (principal)
CPT/HCPCS: 0241U; 87811; 99212

== ENCOUNTER 2024-12-24 11:38 | Outpatient (AMB) | payer OTHER, MEDICAID, SELFPAY ==
[2024-12-24 11:47] VITALS: BP 128/70; PULSE 70; RESP 16; TEMP 36.7; O2SAT 99; BMI 31.1
--- NOTE | 2024-12-24 11:47 | MHC.PC.OV ---
Vital Signs 12/24/24 11:47 Height 5 ft 5 in Weight 187 lb BMI 31.1 BP 128/70 Blood Pressure Location Lt brachial Position Sitting Respiration 16 Pulse 70 Pulse Source Pulse Oximeter Temp 98.1 F Temp Source Oral Pulse Oximetry (%) 99 Oxygen Delivery Method Room Air Intake Visit Reasons: trouble concentrating Intake Note: Pt is here today c/o trouble concentrating Allergies No Known Allergies Allergy (Verified 12/24/24 12:22) Medication List - Last Reconciled 12/24/24 by Arti June MD phentermine 37.5 mg PO DAILY Tobacco use date assessed: 12/24/24 Dental Screening Dental Screen Date: 12/24/24 Did you have a dental visit in the last 12 months?: Yes Did you have a dental problem in the last 6 months where you did not have access to dental care?: No Was dental information given to patient?: Patient has dentist HPI trouble concentrating HPI Details 34-year-old lady here today follow-up cardiac her weight. Currently on phentermine 37.5 mg per tablet taken once a day in a.m.. Tolerating medication well, has been losing weight, appetite has been suppressed. Patient however would sometimes experience intermittent episodes of palpitations which resolved spontaneously. She has also been complaining having frequent anxiety attacks and having problems with Cologuard her focus at work. He has been having hard time completing tasks, gets distracted easily.. [facility] Medical History (Updated 12/24/24 @ 12:26 by Arti June MD) Generalized anxiety disorder Dyslipidemia Pelvic pain Mixed anxiety and depressive disorder Vitamin D deficiency Hypercholesterolemia without hypertriglyceridemia Thrombocytopenia History of wrist fracture Hx of herpes genitalis Obesity (BMI 30.0-34.9) Exercise induced bronchospasm Depression with anxiety Surgical History History of surgery on right wrist Family History Father HTN (hypertension) Skin cancer Insomnia Substance use disorder Mental health disorder Maternal Grandmother Diabetes mellitus HTN (hypertension) Multiple myeloma Obese Mental health disorder Paternal Grandmother Oral cancer Mental health disorder Mother HTN (hypertension) Substance use disorder Mental health disorder Maternal Grandfather Substance use disorder Mental health disorder Paternal Grandfather Mental health disorder Sister Substance use disorder Mental health disorder Son No problems noted. Son No problems noted. Paternal Uncle Substance use disorder Mental health disorder Social History Household Members: Children Household Members Other:: 2 sons (7 and 5 y/o in 2020) Housing: House Alcohol intake: never Patient Tobacco Use Status: Never used Tobacco e-Cigarette/Vaping Use: Never Used service: No Current occupational status: employed Sexual orientation: Straight/Heterosexual Gender identity: Female Cognitive needs: No Hearing needs: No Vision needs: Yes Questionnaire PHQ-9 Over the last 2 weeks, how often have you been bothered by any of the following problems? 1. Little interest or pleasure in doing things: not at all 2. Feeling down, depressed, or hopeless: several days 3. Trouble falling or staying asleep, or sleeping too much: several days 4. Feeling tired or having little energy: more than half the days 5. Poor appetite or overeating: several days 6. Feeling bad about yourself - or that you are a failure or have let yourself or your family down: not at all 7. Trouble concentrating on things, such as reading the newspaper or watching television: not at all 8. Moving or speaking so slowly that other people could have noticed. Or the opposite - being so fidgety or restless that you have been moving around a lot more than usual: not at all 9. Thoughts that you would be better off or of hurting yourself in some way: not at all Total score: 5 Depression Screening Interpretation: Positive (Referred to psychiatry for further evaluation management) Depression Screening Follow-up: Community Mental Health Worker F/U Depression Screening Done: Yes Source: Developed by Drs. Gene Iverson, Sydney Ponce, Jacob Rodas and colleagues, with an educational evelina from [address]. Thrive Questionnaire Date Thrive assessed: 12/24/24 I am a: Patient What is your living situation today?: I have a steady place to live Within the past 12 months, did the food you bought not last and you didn't have the money to get more?: Never true Within the past 12 months, did you worry whether your food would run out before you got money to buy more?: Never true Do you have trouble paying for medicines?: No Do you have trouble getting transportation to medical appointments?: No Do you have trouble paying your heating and electricity bill?: No Do you have trouble taking care of your child, family member or friend?: No Do you have trouble with day-to-day activities such as bathing, preparing meals, shopping, managing finances, etc.?: No Are you currently unemployed and looking for a job?: No Are you interested in more education?: No Please select the resources that you would like help with: None Currently or been in a relationship where the following occur: No concerns reported THRIVE Score: 0 AUDIT C Alcohol Use Questionnaire (AUDIT-C) 1. How often do you have a drink containing alcohol?: Never 3. How often do you have six or more drinks on one occasion?: Never Total Score: 0 SOM-7 AMB Questionnaire SOM-7 Date SOM - 7 assessed: 12/24/24 Feeling nervous, anxious, or on edge: 2 = More than half the days Not being able to stop or control worryin = Several days Worrying too much about different things: 1 = Several days Trouble relaxin = Several days Being so restless that it is hard to sit still: 1 = Several days Becoming easily annoyed or irritable: 2 = More than half the days Feeling afraid as if something awful might happen: 0 = Not at all Total SOM-7 score (0-4 normal; 5-9 mild; 10-14 moderate; 15-21 severe): 8 Source: Developed by Drs. Gene Iverson, Sydney Ponce, Jacob Rodas and colleagues, with an educational evelina from [address]. SOM-7 Assessment Billing SOM-7 Assessment Tool: SOM-7 Assessment 56437 (Referral to Psychiatry initiated) Review of Systems Const All systems reviewed & are unremarkable except as noted in HPI and below Physical exam (Primary Care) Vital Signs: Last Vital Signs Temp 98.1 F 12/24/24 11:47 Pulse 70 12/24/24 11:47 Resp 16 12/24/24 11:47 BP 128/70 12/24/24 11:47 Pulse Ox 99 12/24/24 11:47 Oxygen Delivery Method Room Air 12/24/24 11:47 BMI result Body Mass Index 31.1 BMI Assessment/Plan discussion: High BMI High, discussed plan: dietary and physical activity Tobacco/Smoking Status: Tobacco use Status Tobacco use date assessed 12/24/24 12/24/24 11:54 Patient Tobacco Use Status Never used Tobacco 12/24/24 11:54 e-Cigarette/Vaping Use Never Used 12/24/24 11:54 PHQ-9: PHQ-9 Score PHQ-9: Total score 5 12/24/24 12:36 Depression Screening Interpretation: Positive (Referred to psychiatry for further evaluation management) Depression Screening Follow-up: Community Mental Health Worker F/U Thrive Assessment: Date of Thrive Assessment Date Thrive assessed 12/24/24 12/24/24 11:54 Currently or been in a relationship where the following occur: No concerns reported Const General: comfortable and no acute distress Nutritional Appearance: obese Orientation/consciousness: patient oriented x3 HENMT Head: Yes normocephalic General nose exam: Normal external nose present Face and sinus: Yes face symmetric Eyes General: appearance normal, both eyes and all related structures Neck Neck: Yes full ROM and Yes no lymphadenopathy Thyroid: Thyroid normal (Nonpalpable) Resp Effort & Inspection: normal respiratory effort and able to speak in complete sentences Neuro General: patient oriented x3, gait normal, tone normal, Normal light touch and pain sensation, no focal motor deficits and CN's II-XI intact bilaterally Cognition (Neuro): normal cognition Gait exam (Neuro): Normal gait present Psych Appearance: grossly normal and well kempt Mental Status: mental status grossly normal Speech and movement: Normal speech and movement present Affect: normal affect Attitude: cooperative Thought process: Normal thought process present Thought content: Normal thought content present Coding Level of Care Code Est Pt Level 4 (28084) Diagnoses Generalized anxiety disorder F41.1 Obesity (BMI 30.0-34.9) E66.9 Additional Codes SOM-7 Assessment Billing - SOM-7 Assessment Tool: SOM-7 Assessment 09633 ([id number]) Assessment & Plan Assessment & Plan (1) Generalized anxiety disorder: Code(s): F41.1 - Generalized anxiety disorder Category: Medical Plan: Initiated referral to Lizeth Egan RN at [facility] [facility] psychiatry clinic for further evaluation management, interested as well in getting referral for ADD screening. (2) Obesity (BMI 30.0-34.9): Code(s): E66.9 - Obesity, unspecified Category: Medical Plan: Continue on phentermine 37.5 mg to taken once a day 2 hours after breakfast, combined this with adherence to healthy eating habits and getting regular exercise. Has lost approximately 18 lb done last six-month Orders: Referrals Psychiatry Referral F41.1 - Generalized anxiety disorder
== END 2024-12-24 12:57 | disposition home or self-care (01) ==
PROVIDERS: PCP Internal Medicine; Visit Provider Internal Medicine
DX: F41.1 Generalized anxiety disorder (principal); E66.9 Obesity, unspecified; Z68.31 Body mass index [BMI] 31.0-31.9, adult

== ENCOUNTER → 2024-12-24 11:38 | Outpatient (BNVA) | payer OTHER, MEDICAID, SELFPAY | PROVIDERS: PCP Internal Medicine; Visit Provider Internal Medicine | DX: F41.1 Generalized anxiety disorder (principal); E66.9 Obesity, unspecified; Z68.31 Body mass index [BMI] 31.0-31.9, adult; Z79.899 Other long term (current) drug therapy | CPT/HCPCS: 96127 ==

== ENCOUNTER 2025-01-07 14:29 | Outpatient (AMB) | payer OTHER, MEDICAID, SELFPAY ==
--- NOTE | 2025-01-07 14:45 | A.OFFPSYCH_ITS ---
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 Allergies No Known Allergies Allergy (Verified 12/24/24 12:22) Medication List - Last Reconciled 01/07/25 by Lizeth Wilder APRN phentermine 37.5 mg PO DAILY HPI- Psychiatric Chief Complaint: consultation HPI Narrative: pt referrred by PCP for eval uation for poassible ADHD pt reports difficulty with focus and attention since childhood; she hhad trouble with procrastination and finishing projects; she was always well behaved and did well academically unitl middle school; she did have to work hard to pay attention but was able to do the work with structure; she tried to go to community college 6 times and could not complete a degree; she did finsih a few classes but never completed a full progtam; 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 she scored 18 on ADHD self report s kermit(anything over a score of 13 leans towars ADHD) Pt has some anxiety GAD7= 13 and PHQ9= 9. we discussed treatments for ADHD and pt would like to think about her options and will call or message if wants to start a medication. Past Psychiatric History: hx of anxiety and depression in past had 3 visits outpt therapy -raising children didn't have time to continue Subjective Subjective Subjective Medication Compliance: Yes Side effects from medications: No Review of Systems Medical Review of Systems: unchanged Mental Status Exam Mental Status Exam Patient Appearance: Well Grooomed Patient Orientation: Person, Place and Time Level of Consciousness: Awake, Appropriate and Alert Patient Behavior: Appropriate, Talkative and Good Eye Contact Mood Description: Anxious Affect Description: Anxious Patient Cognition Impaired: No Ability to Follow Directions: Good Speech Pattern: Clear and Appropriate Memory Description: Intact Hallucinations: None Delusions: Not Present Thought Process: Intact and Goal Oriented Thought Content: positive for Intact and positive for Goal Oriented Judgement: Good Assessment and Plan Assessment & Plan (1) ADHD (attention deficit hyperactivity disorder), combined type: Status: Acute Code(s): F90.2 - Attention-deficit hyperactivity disorder, combined type (2) Generalized anxiety disorder: Status: Acute Code(s): F41.1 - Generalized anxiety disorder Plan consider trial of adderall vs wellbutrin labs consider lavender capsules fro anxiety as pt prefers non pharmaceuticals Orders: Orders Vitamin B12 and Folate Today F90.2 - Attention-deficit hyperactivity disorder, combined type IRON PROFILE Today F90.2 - Attention-deficit hyperactivity disorder, combined type TSH reflex Free T4 Today F90.2 - Attention-deficit hyperactivity disorder, combined type Counseling and coordination of Care Pt. Self Management counseling: Exercise, Maintenance-social rhythm, Nutrition education and improvement, Sleep hygiene, Behavior activation and General coping skills Medication management counseling: Effectiveness, Side effects, Dosing range, Duration, Drug interaction and Adherence Diagnosis and Prognosis Counseling: Accuracy of diagnosis, Prognosis over time, Impact of diagnosis on life functions, Impact of family relationship, Problematic behaviors secondary to diagnosis and Adequacy of current interventions Details: I spent 70 minutes reviewing the record, seeing the patient and documenting in the medical record. Counseling provided to the patient/caregiver as outlined below. Addressed patient/caregiver concerns regarding current medication regime including effective adherence. Addressed patient/caregiver concerns regarding diagnosis and prognosis including accuracy of diagnosis, prognosis over time, impact of diagnosis. Addressed patient/caregiver concerns regarding impact of recent stressors. COUNT INCLUDES [facility] Medical History (Updated 01/07/25 @ 14:57 by Lizeth Wilder APRN) Generalized anxiety disorder Dyslipidemia Pelvic pain Mixed anxiety and depressive disorder Vitamin D deficiency Hypercholesterolemia without hypertriglyceridemia Thrombocytopenia History of wrist fracture Hx of herpes genitalis Obesity (BMI 30.0-34.9) Exercise induced bronchospasm Depression with anxiety Surgical History History of surgery on right wrist Family History Father HTN (hypertension) Skin cancer Insomnia Substance use disorder Mental health disorder Maternal Grandmother Diabetes mellitus HTN (hypertension) Multiple myeloma Obese Mental health disorder Paternal Grandmother Oral cancer Mental health disorder Mother HTN (hypertension) Substance use disorder Mental health disorder Maternal Grandfather Substance use disorder Mental health disorder Paternal Grandfather Mental health disorder Sister Substance use disorder Mental health disorder Son No problems noted. Son No problems noted. Paternal Uncle Substance use disorder Mental health disorder Social History Household Members: Children Household Members Other:: 2 sons (7 and 5 y/o in 2020) Housing: House Alcohol intake: never Patient Tobacco Use Status: Never used Tobacco e-Cigarette/Vaping Use: Never Used service: No Current occupational status: employed Sexual orientation: Straight/Heterosexual Gender identity: Female Cognitive needs: No Hearing needs: No Vision needs: Yes Coding Level of Care Code Psych Diag Eval w/Med (59684) Diagnoses ADHD (attention deficit hyperactivity disorder), combined type F90.2 Generalized anxiety disorder F41.1
== END 2025-01-07 16:04 | disposition home or self-care (01) ==
LOC: HO.HOP 14:29
PROVIDERS: PCP Internal Medicine; Visit Provider Clinical Nurse Specialist Psychiatric/Mental Health
DX: F90.2 Attention-deficit hyperactivity disorder, combined type (principal); F41.1 Generalized anxiety disorder
CPT/HCPCS: 90792

== ENCOUNTER → 2025-01-07 14:29 | Outpatient (BNVA) | payer OTHER, MEDICAID, SELFPAY | PROVIDERS: PCP Internal Medicine; Visit Provider Clinical Nurse Specialist Psychiatric/Mental Health | DX: F90.2 Attention-deficit hyperactivity disorder, combined type (principal); F41.1 Generalized anxiety disorder | CPT/HCPCS: 90792 ==

== ENCOUNTER 2025-02-12 08:06 | Outpatient (REF) | payer OTHER, MEDICAID, SELFPAY ==
[2025-02-12 10:01] LABS: MANUAL DIFF FLAG NO
[2025-02-12 10:08] LABS: Basophils Percent Auto 0.7 % (0-2); Eosinophils Absolute Auto 0.1 X10*3/uL (0.0-0.4); Eosinophils Percent Auto 1.6 % (0-4); Hematocrit 39.7 % (37.0-47.0); Hemoglobin 13.8 g/dl (12.0-16.0); Imm Gran Abs Auto 0.01 X10*3/uL (0.00-0.03); Imm Gran Pct Auto 0.2 % (0.0-0.4); Lymphocytes Absolute Auto 1.7 X10*3/uL (1.2-4.9); Lymphocytes Percent Auto 28.2 % (20-40); Mean Corpuscular HGB Conc 34.8 g/dl (31.0-35.0); Mean Corpuscular Hemoglobin 30.5 pg (27.0-33.0); Mean Corpuscular Volume 87.6 fL (80.0-98.0); Mean Platelet Volume 12.2 fL (9.4-12.3); Monocytes Absolute Auto 0.4 X10*3/uL (0.1-1.2); Monocytes Percent Auto 6.7 % (2-11); Neutrophils Absolute Auto 3.8 x10*3/uL (2.0-8.3); Neutrophils Percent Auto 62.6 % (45-73); Platelet Count 195 X10*3/uL (160-400); Red Blood Count 4.53 X10*6/uL (4.20-5.50); Red Cell Distribution Width 12.6 % (11.0-16.0); White Blood Count 6.1 X10*3/uL (4.8-10.8)
[2025-02-12 10:58] LABS: Folate 8.4 ng/mL (> or = 4.0); Vitamin B12 563 pg/mL (200-900)
[2025-02-12 11:33] LABS: TSH reflex Free T4 1.41 uIU/mL (0.32-4.0)
[2025-02-12 13:01] LABS: Alanine Aminotransferase 14 U/L (0-31); Anion Gap 13 (12-20); Aspartate Amino Transferase 23 U/L (5-31); Blood Urea Nitrogen 10 mg/dL (9-16); Calcium 9.4 mg/dL (8.4-10.2); Carbon Dioxide 23 mmol/L (22-29); Chloride 107 mmol/L (96-108); Cholesterol 220 mg/dL (<200); Estimated Glomerular Filt Rate > 60; Glucose Fasting 84 mg/dL (60-99); HDL Cholesterol 50 mg/dL (>40); Iron 109 mcg/dL (30-160); LDL Cholesterol Calculated 154 mg/dL (<100); Percent Iron Saturation 44 % (15-50); Potassium 3.6 mmol/L (3.3-5.1); Sodium 139 mmol/L (135-145); Total Iron Binding Capacity 245 mcg/dL (228-428); Triglycerides 82 mg/dL (<150); Unsaturated Iron Binding 136 ug/dL
[2025-02-12 13:17] LABS: Vitamin D 25-OH Total 26.9 ng/mL (>30)
== END 2025-02-12 08:07 | disposition home or self-care (01) ==
LOC: HO.HMGCLDS 08:06
PROVIDERS: PCP Internal Medicine; Referring Provider Clinical Nurse Specialist Psychiatric/Mental Health; Visit Provider Internal Medicine
DX: F90.2 Attention-deficit hyperactivity disorder, combined type (principal); D69.6 Thrombocytopenia, unspecified; Z13.1 Encounter for screening for diabetes mellitus; E66.9 Obesity, unspecified; E55.9 Vitamin D deficiency, unspecified; E78.5 Hyperlipidemia, unspecified
CPT/HCPCS: 36415; 80048; 80061; 82306; 82607; 82746; 83540; 84443; 84450; 84460; 85025

== ENCOUNTER 2025-02-14 11:40 | Outpatient (AMB) | payer OTHER, MEDICAID, SELFPAY ==
--- NOTE | 2025-02-14 11:40 | MHC.PC.OV ---
Vital Signs 02/14/25 11:44 Height 5 ft 5 in Weight 186 lb BMI 30.9 BP 112/70 Blood Pressure Location Rt brachial Position Sitting Respiration 15 Pulse 72 Pulse Source Pulse Oximeter Temp 97.9 F Temp Source Oral Pulse Oximetry (%) 98 Oxygen Delivery Method Room Air Intake Visit Reasons: pe Intake Note: Pt is here today for her PE: Last papsmear 06/08/23 Is last menstrual period known: Yes Last menstrual period: 02/03/25 Allergies No Known Allergies Allergy (Verified 02/17/25 02:10) Medication List - Last Reconciled 02/17/25 by Arti June MD albuterol sulfate 90 mcg/actuation 2 puffs inhalation Q4-6H PRN phentermine 37.5 mg PO DAILY Tobacco use date assessed: 02/14/25 Dental Screening Dental Screen Date: 02/14/25 Did you have a dental visit in the last 12 months?: Yes Did you have a dental problem in the last 6 months where you did not have access to dental care?: No Was dental information given to patient?: Patient has dentist HPI pe HPI Details 34 year old lady presents today for her physical exam. She has been taking phentermine for treatment of obesity, has lost approximately 19 lb since starting the medication in June of 2024. Has been feeling well, with no adverse effects reported. Continues to adhere to healthy eating habits but does have her GB days every now and then, blunt no regular exercise regimen however. Latest fasting labs showed normal complete blood count, normal electrolytes, renal function, fasting glucose but LDL cholesterol slightly elevated with a low vitamin-D level. She is up-to-date with her cervical cancer screening, last done in 2022 with benign findings. She has been feeling well but would like to be referred to dermatology, has been noticing several white spots appearing on her breast, abdomen, and extremities. Lesions are not pruritic. [facility] Medical History (Updated 02/17/25 @ 02:15 by Arti June MD) Generalized anxiety disorder Mixed anxiety and depressive disorder Vitamin D deficiency Hypercholesterolemia without hypertriglyceridemia History of wrist fracture Hx of herpes genitalis Obesity (BMI 30.0-34.9) Exercise induced bronchospasm Depression with anxiety Surgical History History of surgery on right wrist Family History Father HTN (hypertension) Skin cancer Insomnia Substance use disorder Mental health disorder Maternal Grandmother Diabetes mellitus HTN (hypertension) Multiple myeloma Obese Mental health disorder Paternal Grandmother Oral cancer Mental health disorder Mother HTN (hypertension) Substance use disorder Mental health disorder Maternal Grandfather Substance use disorder Mental health disorder Paternal Grandfather Mental health disorder Sister Substance use disorder Mental health disorder Son No problems noted. Son No problems noted. Paternal Uncle Substance use disorder Mental health disorder Social History Household Members: Children Household Members Other:: 2 sons (7 and 5 y/o in 2019) Housing: House Alcohol intake: never Patient Tobacco Use Status: Never used Tobacco e-Cigarette/Vaping Use: Never Used service: No Current occupational status: employed Sexual orientation: Straight/Heterosexual Gender identity: Female Cognitive needs: No Hearing needs: No Vision needs: Yes Female Reproductive History Menstrual Date of last menstrual period: 02/03/25 Questionnaire Thrive Questionnaire Date Thrive assessed: 02/14/25 Currently or been in a relationship where the following occur: No concerns reported THRIVE Score: 0 AUDIT C Alcohol Use Questionnaire (AUDIT-C) 1. How often do you have a drink containing alcohol?: Never Total Score: 0 SOM-7 AMB Questionnaire SOM-7 Date SOM - 7 assessed: 02/14/25 Source: Developed by Drs. Gene Iverson, Sydney Ponce, Jacob Rodas and colleagues, with an educational evelina from [employer]. Review of Systems Const Denies body aches, Denies fever(s), Denies lethargy and Denies weakness Eyes Details: Goes to [facility] ENT Reports no additional complaints Card Denies chest pain, Denies lightheadedness and Denies dyspnea Resp Denies chest congestion, Denies cough and Denies dyspnea GI Reports no additional complaints Reports no additional complaints Musc Reports no additional complaints Skin/Breast Reports as per HPI Neuro Denies weakness Psych Reports as per HPI Endo Reports no additional complaints Donny/Lymph Reports no additional complaints Aller/Immun Reports no additional complaints Physical exam (Primary Care) Vital Signs: Last Vital Signs Temp 97.9 F 02/14/25 11:44 Pulse 72 02/14/25 11:44 Resp 15 02/14/25 11:44 BP 112/70 02/14/25 11:44 Pulse Ox 98 02/14/25 11:44 Oxygen Delivery Method Room Air 02/14/25 11:44 BMI result Body Mass Index 30.9 BMI Assessment/Plan discussion: High BMI High, discussed plan: dietary and physical activity Tobacco/Smoking Status: Tobacco use Status Tobacco use date assessed 02/14/25 02/14/25 11:45 Patient Tobacco Use Status Never used Tobacco 02/14/25 11:40 e-Cigarette/Vaping Use Never Used 02/14/25 11:40 Thrive Assessment: Date of Thrive Assessment Date Thrive assessed 02/14/25 02/14/25 11:45 Currently or been in a relationship where the following occur: No concerns reported Advance Care Planning discussion: Completed/Scanned Date of discussion: 02/14/25 Who was present: Patient Forms completed: Health Care Proxy Time spent: 16-45 minutes Actual minutes spent: 2 Const General: no acute distress Nutritional Appearance: obese Orientation/consciousness: patient oriented x3 HENMT Head: Yes normocephalic General nose exam: Normal external nose present Face and sinus: Yes face symmetric Eyes General: appearance normal, both eyes and all related structures Neck Neck: Yes full ROM and Yes no lymphadenopathy Thyroid: Thyroid normal (Nonpalpable) Chest Breast/axilla palpation: normal palpation of the breasts Resp Effort & Inspection: normal respiratory effort and able to speak in complete sentences Cardio Other: S1-S2 present rate rate and rhythm no murmurs GI Other: Normal bowel sounds, soft, nontender with no mass palpated General: Yes no CVA tenderness and Yes deferred (Goes to [facility] for her routine Pap and pelvic exam) Back/Spine/Pelvis Back: no CVA tenderness and No back tenderness Skin Other: Tiny slightly raised white spots on upper chest, abdomen, arms and lower face Neuro General: patient oriented x3, gait normal, tone normal, Normal light touch and pain sensation, no focal motor deficits and CN's II-XI intact bilaterally Cognition (Neuro): normal cognition Gait exam (Neuro): Normal gait present Extrem General: Yes full ROM, Yes no joint enlargement, Yes no pedal edema, Yes no calf tenderness and Yes normal gait Psych Appearance: grossly normal and well kempt Mental Status: mental status grossly normal Speech and movement: Normal speech and movement present Affect: normal affect Attitude: cooperative Thought process: Normal thought process present Thought content: Normal thought content present Results Reviewed Results Reviewed: Name: Paras Ohara Age/Sex: 34/F : 1990 [id number] Unit#: [id number] Attend Dr: Arti June MD Re02/12/25 Status: DEP REF Location: [facility] Disch: SPEC : [id number] GABRIELA: 02/12/25 STATUS: COMP REQ : [id number] RECD: 02/12/[address]: Arti June MD COMP: 02/12/25 ENTERED: 02/12/[address] [facility] [address]: Lizeth Wilder APRN ORDERED: CBC Auto Diff Test Result Flag Reference WBC 6.1 4.8-10.8 X10*3/uL RBC 4.53 4.20-5.50 X10*6/uL HGB 13.8 12.0-16.0 g/dl HCT 39.7 37.0-47.0 % MCV 87.6 80.0-98.0 fL MCH 30.5 27.0-33.0 pg MCHC 34.8 31.0-35.0 g/dl RDW 12.6 11.0-16.0 % PLT 195 # 160-400 X10*3/uL MPV 12.2 9.4-12.3 fL Neut Pct Auto 62.6 45-73 % ImGran Pct Auto 0.2 0.0-0.4 % Lymp Pct Auto 28.2 20-40 % Crane Pct Auto 6.7 2-11 % Eos Pct Auto 1.6 0-4 % Baso Pct Auto 0.7 0-2 % NRBC Pct Auto 0.0 0.0-0.2 /100WBC ANC Neut Abs # 3.8 2.0-8.3 x10*3/uL ImGran Abs Auto 0.01 0.00-0.03 X10*3/uL Lymph Abs Auto 1.7 1.2-4.9 X10*3/uL Crane Abs Auto 0.4 0.1-1.2 X10*3/uL Eos Abs Auto 0.1 0.0-0.4 X10*3/uL Baso Abs Auto 0.0 0.0-0.2 X10*3/uL NRBC Abs Auto 0.000 0.0-0.012 X10*3/uL Name: Paras Ohara Age/Sex: 34/F : 1990 Unit#: [id number] Attend Dr: Arti June MD Re02/12/25 Status: DEP REF Location: [facility] Disch: SPEC : [id number] GABRIELA: 02/12/25 STATUS: COMP REQ : [id number] RECD: 02/12/[address]: Arti June MD COMP: 02/12/25 ENTERED: 02/12/[address]: Lizeth Wilder APRN ORDERED: Met Prof Fast, IRON PROF, AST, ALT, Lipid Panel, Vitamin D 25-OH Test Result Flag Reference Sodium 139 135-145 mmol/L Potassium 3.6 3.3-5.1 mmol/L CL 107 96-108 mmol/L CO2 23 22-29 mmol/L Gap 13 12-20 BUN 10 9-16 mg/dL Creat 0.76 0.5-1.4 mg/dL eGFR > 60 Chronic Kidney Disease: Estimated GFR < 60 mL/min/1.73m2 Severe Kidney Disease: Estimated GFR < 15 mL/min/1.73m2 FBS 84 60-99 mg/dL CA 9.4 8.4-10.2 mg/dL Iron 109 30-160 mcg/dL TIBC 245 228-428 mcg/dL Saturation 44 15-50 % UIBC 136 ug/dL AST (GOT) 23 5-31 U/L ALT (GPT) 14 0-31 U/L Triglyceride 82 <150 mg/dL Desirable Triglyceride: less than 150 mg/dL Borderline High Triglyceride 150-199 mg/dL High Triglyceride: 200-499 mg/dL Very High Triglyceride: greater than or equal to 5OO mg/dL Cholesterol 220 H <200 mg/dL Desirable Cholesterol: less than 200 mg/dL Borderline High Cholesterol: 200-239 mg/dL High Cholesterol: greater than 239 mg/dL LDL Calculated 154 H <100 mg/dL Desirable LDL: less than 100 mg/dL Near Optimal/Above Optimal LDL: 110-129 mg/dL Borderline High LDL: 130-159 mg/dL High LDL: 160-189 mg/dL Very High LDL: greater than or equal to 190 mg/dL HDL 50 >40 mg/dL Desirable HDL: greater than 40 mg/dL Note: This HDL assay may give artificially low results in patients with liver disease. Vitamin D 25-OH 26.9 L >30 ng/mL Health Based Reference Values* < 20 ng/mL Deficient 20-30 ng/mL Insufficient > 30 ng/mL Sufficient Coding Level of Care Code Est Pt Prev Care 18-39y(01915) Diagnoses Annual visit for general adult medical examination with abnormal findings Z00. Screening for Malignant Neoplasm of Skin Z Vitamin D deficiency E55.9 Hypercholesterolemia without hypertriglyceridemia E78.00 Obesity (BMI 30.0-34.9) E66.9 Advanced directives, counseling/discussion Z71.89 Additional Codes Vital Signs *Quality* - Advance Care Planning discussion: Completed/Scanned ([id number]) Vital Signs *Quality* - Time spent: 16-45 minutes ([id number]) Assessment & Plan Assessment & Plan (1) Annual visit for general adult medical examination with abnormal findings: Code(s): Z00. - Encounter for general adult medical examination with abnormal findings Plan: Reviewed recent fasting lab results with patient.. Continue regular dental visit every 6 months and regular eye exams, at least every 2 years. Take adequate calcium in diet and vitamin-D 3 at 2000 IU per cap once a day, in addition to weight-bearing exercises to help maintain good muscle tone and weight control. Instructed to do self-breast exam, and recommended to get yearly mammogram, starting at age 40. She is up-to-date with her Tdap, does not want to get COVID booster, reminded to get yearly flu shots (2) Screening for Malignant Neoplasm of Skin: Code(s): Z12.83 - Encounter for screening for malignant neoplasm of skin Plan: Referral to dermatology clinic ordered (3) Vitamin D deficiency: Code(s): E55.9 - Vitamin D deficiency, unspecified Category: Medical Plan: Advised to start taking [id number]-[id number] vitamin D3 at 2000 units daily (4) Hypercholesterolemia without hypertriglyceridemia: Code(s): E78.00 - Pure hypercholesterolemia, unspecified Category: Medical Plan: Reviewed recent fasting lipid profile with patient with elevated LDL cholesterol . Stressed importance of adherence to low-cholesterol diet and regular exercise, at least 30 minutes 3 to 4 times a week. Advised patient to make healthy food choices, eat more fruits, vegetables, whole grains, wild caught fish and low-fat dairy. Limit amount of meat and fried or fatty food products, as well as processed foods and fast foods. . (5) Obesity (BMI 30.0-34.9): Code(s): E66.9 - Obesity, unspecified Category: Medical Plan: Continued on phentermine 37.5 mg per capsule taken once a day 2 hours after breakfast. Combined this with adherence to healthy eating habits and regular exercise at least 30 minutes of moderate intensity exercise 3 to 4 times a week. (6) Advanced directives, counseling/discussion: Code(s): Z71.89 - Other specified counseling Plan: Initiated the conversation about Advanced Directives. Advanced Directives help patients prepare for current and future decisions about their medical treatment and place of care. Discussed with patient that it is a process where a patients current condition and prognosis are reviewed, their wishes for information regarding their illness are elicited, and likely medical dilemmas are presented and options discussed. Healthcare proxy form completed. The form can be amended as needed, reviewed yearly and make changes as needed Orders: Referrals Dermatology Referral Z12.83 - Encounter for screening for malignant neoplasm of skin
[2025-02-14 11:44] VITALS: BP 112/70; PULSE 72; RESP 15; TEMP 36.6; O2SAT 98; BMI 30.9
== END 2025-02-14 13:05 | disposition home or self-care (01) ==
LOC: HO.HMCC 11:40
PROVIDERS: PCP Internal Medicine; Visit Provider Internal Medicine
DX: Z00.00 Encounter for general adult medical examination without abnormal findings (principal); E55.9 Vitamin D deficiency, unspecified; E66.9 Obesity, unspecified; Z68.30 Body mass index [BMI] 30.0-30.9, adult; Z12.83 Encounter for screening for malignant neoplasm of skin; E78.00 Pure hypercholesterolemia, unspecified; Z71.89 Other specified counseling

== ENCOUNTER → 2025-02-14 11:40 | Outpatient (BNVA) | payer OTHER, MEDICAID, SELFPAY | PROVIDERS: PCP Internal Medicine; Visit Provider Internal Medicine | DX: Z13.89 Encounter for screening for other disorder (principal) ==

== ENCOUNTER 2025-05-15 09:40 | Outpatient (AMB) | payer OTHER, MEDICAID, SELFPAY ==
[2025-05-15 09:47] VITALS: BP 110/84; PULSE 88; TEMP 36.7; O2SAT 98; BMI 30.9
--- NOTE | 2025-05-15 09:47 | AM.OFFWIN_ITS ---
Intake Vital Signs 05/15/25 09:47 Height 5 ft 5 in Weight 186 lb BMI 30.9 BP 110/84 Blood Pressure Location Lt brachial Position Sitting Pulse 88 Pulse Source Pulse Oximeter Temp 98.0 F Temp Source Oral Pulse Oximetry (%) 98 Oxygen Delivery Method Room Air Intake Visit Reasons: EP Face/neck rash Intake Note: presents with red, itchy rash to face and neck for a couple days Patient Tobacco Use Status: Never used Tobacco Allergies No Known Allergies Allergy (Verified 05/15/25 09:49) Do you need a note to return to daycare/school/sports/work: No HPI HPI Comments History of Present Illness Details History - The patient is a 34-year-old female pr esenting with a rash on her neck and chest. - The rash began two days ago, character ized by itchiness and spreading from the neck to the chest and face. - Application of calamine lotion and hyd rocortisone cream exacerbated the rash. - Recent room painting is the only new a ctivity she associates with the onset of the rash. - She is on phentermine for weight loss but has not been taking it consistently. - She denies exposure to new personal ca re products, foods, or environmental changes. - No systemic symptoms such as fever, ch ills, CP, SOB, or gastrointestinal issues are reported. Physical Exam General: Cooperative, healthy appearing, comfortable, no acute distress and well developed Orientation: Patient oriented x3 Limitations: No limitations Mouth: normal, moist oral mucosa Neck: Diffuse erythematous rash noted, slightly raised, non-tender, blanchable, dry with no lesions, macules, papules, or pustules, warm to the touch. Non- indurated, not fluctuant. Respiratory: Normal respiratory effort and able to speak in complete sentences. Clear to auscultation bilaterally. No w/r/r noted. Cardiovascular: RRR, no m/r/g noted. Normal S1 and S2 Skin: warm and dry, no other rashes or lesions noted. Patient was informed and verbally consented to the use of an ambient scribe for clinic note documentation during this visit [facility] Medical History (Updated 02/17/25 @ 02:15 by Arti June MD) Generalized anxiety disorder Mixed anxiety and depressive disorder Vitamin D deficiency Hypercholesterolemia without hypertriglyceridemia History of wrist fracture Hx of herpes genitalis Obesity (BMI 30.0-34.9) Exercise induced bronchospasm Depression with anxiety Surgical History History of surgery on right wrist Family History Father HTN (hypertension) Skin cancer Insomnia Substance use disorder Mental health disorder Maternal Grandmother Diabetes mellitus HTN (hypertension) Multiple myeloma Obese Mental health disorder Paternal Grandmother Oral cancer Mental health disorder Mother HTN (hypertension) Substance use disorder Mental health disorder Maternal Grandfather Substance use disorder Mental health disorder Paternal Grandfather Mental health disorder Sister Substance use disorder Mental health disorder Son No problems noted. Son No problems noted. Paternal Uncle Substance use disorder Mental health disorder Social History Household Members: Children Household Members Other:: 2 sons (7 and 5 y/o in 2019) Housing: House Alcohol intake: never Patient Tobacco Use Status: Never used Tobacco e-Cigarette/Vaping Use: Never Used service: No Current occupational status: employed Sexual orientation: Straight/Heterosexual Gender identity: Female Cognitive needs: No Hearing needs: No Vision needs: Yes Review of Systems Const All systems reviewed & are unremarkable except as noted in HPI and below Physical Exam Vital Signs: Last Vital Signs Temp 98.0 F 05/15/25 09:47 Pulse 88 05/15/25 09:47 BP 110/84 05/15/25 09:47 Pulse Ox 98 05/15/25 09:47 Oxygen Delivery Method Room Air 05/15/25 09:47 BMI result Body Mass Index 30.9 Assessment & Plan Assessment & Plan (1) Rash: Code(s): R21 - Rash and other nonspecific skin eruption Plan Most likely Contact Dermatitis vs allergic dermatitis vs hives plan - Pepcid 20 mg daily - Cetirizine daily - prednisone burst of 40 mg for 5 days. - can use hydrocortisone cream to the area - follow up with PCP Medications: New famotidine (Pepcid) 20 mg PO DAILY 14 tabs 0RF prednisone 40 mg (2 x 20 mg) PO DAILY 10 tabs 0RF 5 days cetirizine 10 mg PO DAILY PRN 14 tabs 0RF allergy symptoms Coding Level of Care Code Est Pt Level 3 (05046) Diagnoses Rash R21
== END 2025-05-15 10:19 | disposition home or self-care (01) ==
PROVIDERS: PCP Internal Medicine; Visit Provider Physician Assistant Medical
DX: R21 Rash and other nonspecific skin eruption (principal)

== ENCOUNTER 2025-05-16 10:47 | Outpatient (AMB) | payer OTHER, MEDICAID, SELFPAY ==
[2025-05-16 11:01] VITALS: BP 112/80; PULSE 85; RESP 16; TEMP 36.7; O2SAT 100; BMI 29.8
--- NOTE | 2025-05-16 11:01 | A.OFFPC_ITS ---
Vital Signs 05/16/25 11:01 Height 5 ft 5 in Weight 179 lb BMI 29.8 BP 112/80 Blood Pressure Location Rt brachial Position Sitting Respiration 16 Pulse 85 Pulse Source Pulse Oximeter Temp 98.0 F Temp Source Oral Pulse Oximetry (%) 100 Oxygen Delivery Method Room Air Intake Visit Reasons: 3m follow up Intake Note: Pt is here today for her 3mo. f/u Allergies No Known Allergies Allergy (Verified 05/20/25 00:43) Medication List - Last Reconciled 05/16/25 by Arti June MD albuterol sulfate 90 mcg/actuation 2 puffs inhalation Q4-6H PRN cetirizine 10 mg PO DAILY PRN famotidine (Pepcid) 20 mg PO DAILY phentermine 37.5 mg PO DAILY prednisone 40 mg (2 x 20 mg) PO DAILY 5 days Tobacco use date assessed: 05/16/25 Dental Screening Dental Screen Date: 05/16/25 Did you have a dental visit in the last 12 months?: Yes Did you have a dental problem in the last 6 months where you did not have access to dental care?: No Was dental information given to patient?: Patient has dentist HPI 3m follow up HPI Details 34-year-old lady with history of hyperch olesterolemia, vitamin-D deficiency, exercise-induced bronchospasm and obesity, here today follow-up. She has been taking phentermine now on 37.5 mg , which she has just been taking maybe once a week, and has changed her dietary habits, now eating more cook meals and avoiding a lot of simple carbohydrates and processed foods, has started exercising regularly and has lost approximately 30 lb since starting the medication. Denies any chest pain, palpitations, headaches, lightheadedness, or shortness of breath. Has started weaning herself off phentermine, now has just been taking once a week. [facility] Medical History (Updated 05/20/25 @ 00:47 by Arti June MD) Generalized anxiety disorder Vitamin D deficiency Hypercholesterolemia without hypertriglyceridemia History of wrist fracture Hx of herpes genitalis Obesity (BMI 30.0-34.9) Exercise induced bronchospasm Surgical History History of surgery on right wrist Family History Father HTN (hypertension) Skin cancer Insomnia Substance use disorder Mental health disorder Maternal Grandmother Diabetes mellitus HTN (hypertension) Multiple myeloma Obese Mental health disorder Paternal Grandmother Oral cancer Mental health disorder Mother HTN (hypertension) Substance use disorder Mental health disorder Maternal Grandfather Substance use disorder Mental health disorder Paternal Grandfather Mental health disorder Sister Substance use disorder Mental health disorder Son No problems noted. Son No problems noted. Paternal Uncle Substance use disorder Mental health disorder Social History Household Members: Children Household Members Other:: 2 sons (7 and 5 y/o in 2020) Housing: House Alcohol intake: never Patient Tobacco Use Status: Never used Tobacco e-Cigarette/Vaping Use: Never Used service: No Current occupational status: employed Sexual orientation: Straight/Heterosexual Gender identity: Female Cognitive needs: No Hearing needs: No Vision needs: Yes Questionnaire Thrive Questionnaire Date Thrive assessed: 12/24/24 I am a: Patient What is your living situation today?: I have a steady place to live Within the past 12 months, did the food you bought not last and you didn't have the money to get more?: Never true Within the past 12 months, did you worry whether your food would run out before you got money to buy more?: Never true Do you have trouble paying for medicines?: No Do you have trouble getting transportation to medical appointments?: No Do you have trouble paying your heating and electricity bill?: No Do you have trouble taking care of your child, family member or friend?: No Do you have trouble with day-to-day activities such as bathing, preparing meals, shopping, managing finances, etc.?: No Are you currently unemployed and looking for a job?: No Are you interested in more education?: No Please select the resources that you would like help with: None Currently or been in a relationship where the following occur: No concerns reported THRIVE Score: 0 SOM-7 AMB Questionnaire SOM-7 Date SOM - 7 assessed: 02/14/25 Source: Developed by Drs. Gene Iverson, Sydney Ponce, Jacob Rodas and colleagues, with an educational evelina from [employer]. Review of Systems Const Denies body aches, Denies fever(s), Denies lethargy and Denies weakness Eyes Details: Goes to [facility] ENT Reports no additional complaints Card Denies chest pain and Denies lightheadedness Resp Denies chest congestion, Denies cough and Reports wheezing ( triggered by exertion) GI Reports no additional complaints Reports no additional complaints Musc Reports no additional complaints Skin/Breast Reports as per HPI Neuro Denies weakness Psych Reports as per HPI Endo Reports no additional complaints Donny/Lymph Reports no additional complaints Aller/Immun Reports no additional complaints and Reports wheezing ( triggered by exertion) Physical exam (Primary Care) Vital Signs: Last Vital Signs Temp 98.0 F 05/16/25 11:01 Pulse 85 05/16/25 11:01 Resp 16 05/16/25 11:01 BP 112/80 05/16/25 11:01 Pulse Ox 100 05/16/25 11:01 Oxygen Delivery Method Room Air 05/16/25 11:01 BMI result Body Mass Index 29.8 Tobacco/Smoking Status: Tobacco use Status Tobacco use date assessed 05/16/25 05/16/25 11:05 Patient Tobacco Use Status Never used Tobacco 05/16/25 11:05 e-Cigarette/Vaping Use Never Used 05/16/25 11:05 Thrive Assessment: Date of Thrive Assessment Date Thrive assessed 12/24/24 05/16/25 11:05 Currently or been in a relationship where the following occur: No concerns reported Const General: no acute distress Nutritional Appearance: overweight Orientation/consciousness: patient oriented x3 HENMT Head: Yes normocephalic General nose exam: Normal external nose present Face and sinus: Yes face symmetric Eyes General: appearance normal, both eyes and all related structures Neck Neck: Yes full ROM and Yes no lymphadenopathy Resp Effort & Inspection: normal respiratory effort and able to speak in complete sentences Cardio Other: S1-S2 present rate rate and rhythm no murmurs GI Other: Normal bowel sounds, soft, nontender with no mass palpated Neuro General: patient oriented x3, gait normal, tone normal, Normal light touch and pain sensation, no focal motor deficits and CN's II-XI intact bilaterally Cognition (Neuro): normal cognition Gait exam (Neuro): Normal gait present Extrem General: Yes full ROM, Yes no joint enlargement, Yes no pedal edema, Yes no calf tenderness and Yes normal gait Psych Appearance: grossly normal and well kempt Mental Status: mental status grossly normal Speech and movement: Normal speech and movement present Affect: normal affect Coding Level of Care Code Est Pt Level 4 (99591) Diagnoses Obesity (BMI 30.0-34.9) E66.9 Hypercholesterolemia without hypertriglyceridemia E78.00 Vitamin D deficiency E55.9 Exercise induced bronchospasm J45.990 Assessment & Plan Assessment & Plan (1) Obesity (BMI 30.0-34.9): Code(s): E66.9 - Obesity, unspecified Category: Medical Plan: Starting to taper off phentermine, continue with adherence to healthy eating habits and regular exercise (2) Hypercholesterolemia without hypertriglyceridemia: Code(s): E78.00 - Pure hypercholesterolemia, unspecified Category: Medical Plan: Fasting lipid panel ordered (3) Vitamin D deficiency: Code(s): E55.9 - Vitamin D deficiency, unspecified Category: Medical Plan: Vitamin-D level ordered (4) Exercise induced bronchospasm: Code(s): J45.990 - Exercise induced bronchospasm Category: Medical Plan: Refill prescription for albuterol inhaler, inserted to take 2 inhalations at least 1 minute apart at least 15 minutes prior to doing any moderate intensity exercise Orders: Orders Lipid Panel 05/16/25 E55.9 - Vitamin D deficiency, unspecified, E66.9 - Obesity, unspecified, E78.00 - Pure hypercholesterolemia, unspecified Aspartate Amino Transferase 05/16/25 E55.9 - Vitamin D deficiency, unspecified, E66.9 - Obesity, unspecified, E78.00 - Pure hypercholesterolemia, unspecified Basic Metabolic Panel Fasting 05/16/25 E55.9 - Vitamin D deficiency, unspecified, E66.9 - Obesity, unspecified, E78.00 - Pure hypercholesterolemia, unspecified Vitamin B12 and Folate 05/16/25 E55.9 - Vitamin D deficiency, unspecified, E66.9 - Obesity, unspecified, E78.00 - Pure hypercholesterolemia, unspecified Vitamin B6 05/16/25 E55.9 - Vitamin D deficiency, unspecified, E66.9 - Obesity, unspecified, E78.00 - Pure hypercholesterolemia, unspecified Complete Blood Count Auto Diff 05/16/25 E55.9 - Vitamin D deficiency, unspecified, E66.9 - Obesity, unspecified, E78.00 - Pure hypercholesterolemia, unspecified Vitamin D 25-OH Total 05/16/25 E55.9 - Vitamin D deficiency, unspecified, E66.9 - Obesity, unspecified, E78.00 - Pure hypercholesterolemia, unspecified Alanine Aminotransferase 05/16/25 E55.9 - Vitamin D deficiency, unspecified, E66.9 - Obesity, unspecified, E78.00 - Pure hypercholesterolemia, unspecified Medications: New albuterol sulfate 90 mcg/actuation 2 puffs inhalation Q4-6H PRN 8.5 grams 2RF bronchospasm cholecalciferol (vitamin D3) 50 mcg PO DAILY 90 caps 1RF E55.9 - Vitamin D deficiency, unspecified Refilled phentermine must administer 30 minutes before or 1-2 hours after breakfast 37.5 mg PO DAILY 90 caps 0RF
== END 2025-05-16 13:35 | disposition home or self-care (01) ==
LOC: HO.HMCC 10:49
PROVIDERS: PCP Internal Medicine; Visit Provider Internal Medicine
DX: E78.00 Pure hypercholesterolemia, unspecified (principal); E66.9 Obesity, unspecified; Z68.29 Body mass index [BMI] 29.0-29.9, adult; E55.9 Vitamin D deficiency, unspecified; J45.990 Exercise induced bronchospasm

== ENCOUNTER 2025-05-20 09:26 | Outpatient (AMB) | payer OTHER, SELFPAY ==
--- NOTE | 2025-05-20 09:28 | A.OFFPSYCH_ITS ---
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 She would like to try an ADHD medication; she took wellbutrin in past for depression but it did not help her focus/concentration. 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 she scored 18 on ADHD self report scale(anything over a score of 13 leans towards ADHD) Pt has some anxiety GAD7= 13 and PHQ9= 9. she denies SI or HI Past Psychiatric History: hx of anxiety and depression in past had 3 visits outpt therapy -raising children didn't have time to continue Subjective Subjective Subjective Medication Compliance: Yes Side effects from medications: No Review of Systems Medical Review of Systems: unchanged Mental Status Exam Mental Status Exam Patient Appearance: Well Grooomed Patient Orientation: Person, Place and Time Level of Consciousness: Awake, Appropriate and Alert Patient Behavior: Appropriate, Talkative and Good Eye Contact Mood Description: Anxious Affect Description: Anxious Patient Cognition Impaired: No Ability to Follow Directions: Good Speech Pattern: Clear and Appropriate Memory Description: Intact Hallucinations: None Delusions: Not Present Thought Process: Intact and Goal Oriented Thought Content: positive for Intact and positive for Goal Oriented Judgement: Good Telehealth Telehealth Telehealth Platform: Other (please specify) ([email or web address]) Location of provider rendering services: practice address Location of patient: other (work in the [facility] ) Patient Identification confirmed using: Name, : Yes Telehealth method: video Patient verbally consented to treatment: Yes Patient verbally consented to billing insurance company: Yes Minutes spent on Phone/Video with Pt.: 28 Assessment and Plan Assessment & Plan (1) ADHD, predominantly inattentive type: Status: Acute Code(s): F90.0 - Attention-deficit hyperactivity disorder, predominantly inattentive type Medications: New dextroamphetamine-amphetamine 20 mg ER (Adderall XR) Partial Fill upon patient request. 20 mg PO QAM 30 caps 0RF F90.0 - Attention-deficit hyperactivity disorder, predominantly inattentive type dextroamphetamine-amphetamine 10 mg (Adderall) Partial Fill upon patient request. 10 mg PO DAILY@1630 PRN 30 tabs 0RF breakthrough ADHD symptoms F90.0 - Attention-deficit hyperactivity disorder, predominantly inattentive type Counseling and coordination of Care Pt. Self Management counseling: Maintenance-social rhythm, Mod caffeine/ETOH intake, Nutrition education and improvement, Sleep hygiene, Behavior activation and General coping skills Medication management counseling: Effectiveness, Side effects, Dosing range, Duration, Drug interaction and Adherence Diagnosis and Prognosis Counseling: Accuracy of diagnosis, Prognosis over time, Impact of diagnosis on life functions, Impact of family relationship, Problematic behaviors secondary to diagnosis and Adequacy of current interventions Details: I spent 35 minutes reviewing the record, seeing the patient and documenting in the medical record. Counseling provided to the patient/caregiver as outlined below. Addressed patient/caregiver concerns regarding current medication regime including effective adherence. Addressed patient/caregiver concerns regarding diagnosis and prognosis including accuracy of diagnosis, prognosis over time, impact of diagnosis. Addressed patient/caregiver concerns regarding impact of recent stressors. [facility] Medical History (Updated 05/20/25 @ 09:32 by Lizeth Wilder APRN) Generalized anxiety disorder Vitamin D deficiency Hypercholesterolemia without hypertriglyceridemia History of wrist fracture Hx of herpes genitalis Obesity (BMI 30.0-34.9) Exercise induced bronchospasm Surgical History History of surgery on right wrist Family History Father HTN (hypertension) Skin cancer Insomnia Substance use disorder Mental health disorder Maternal Grandmother Diabetes mellitus HTN (hypertension) Multiple myeloma Obese Mental health disorder Paternal Grandmother Oral cancer Mental health disorder Mother HTN (hypertension) Substance use disorder Mental health disorder Maternal Grandfather Substance use disorder Mental health disorder Paternal Grandfather Mental health disorder Sister Substance use disorder Mental health disorder Son No problems noted. Son No problems noted. Paternal Uncle Substance use disorder Mental health disorder Social History Household Members: Children Household Members Other:: 2 sons (7 and 5 y/o in 2019) Housing: House Alcohol intake: never Patient Tobacco Use Status: Never used Tobacco e-Cigarette/Vaping Use: Never Used service: No Current occupational status: employed Sexual orientation: Straight/Heterosexual Gender identity: Female Cognitive needs: No Hearing needs: No Vision needs: Yes Coding Level of Care Code Tele Est Pt Level 4 (05395) Diagnoses ADHD, predominantly inattentive type F90.0
== END 2025-05-20 09:39 | disposition home or self-care (01) ==
LOC: HO.HOP 09:26
PROVIDERS: PCP Internal Medicine; Visit Provider Clinical Nurse Specialist Psychiatric/Mental Health
DX: F90.0 Attention-deficit hyperactivity disorder, predominantly inattentive type (principal)
CPT/HCPCS: 99214

== ENCOUNTER 2025-05-23 09:49 | Outpatient (AMB) | payer OTHER, MEDICAID, SELFPAY ==
--- NOTE | 2025-05-23 10:09 | MHC.OFFVIS ---
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 Information Interpreted: clinical only Accompanied by: Self / Same As Patient Allergies No Known Allergies Allergy (Verified 05/23/25 10:16) Medication List - Last Reconciled 05/23/25 by Megan Tejada LPN albuterol sulfate 90 mcg/actuation 2 puffs inhalation Q4-6H PRN cholecalciferol (vitamin D3) 50 mcg PO DAILY dextroamphetamine-amphetamine 10 mg (Adderall) 10 mg PO DAILY@1630 PRN dextroamphetamine-amphetamine 20 mg ER (Adderall XR) 20 mg PO QAM Is last menstrual period known: Yes Last menstrual period: 04/18/25 Post menopausal: No Patient : No Followed by:: Megan Tejada LPN Do you need a note to return to daycare/school/sports/work: No HPI Comments Details: Patient is a premenopausal woman presenting for annual examination. 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 Regular monthly menses. Currently is sexually active. Planning a future . She denies vaginal itching or irritation. STI screening offered; she accepts. She tries to eat healthy and stays active with exercise. Denies family history of ovarian or colon cancer. FH breast cancer-MG. Last pap smear 2022, negative. [facility] Medical History Generalized anxiety disorder Vitamin D deficiency Hypercholesterolemia without hypertriglyceridemia History of wrist fracture Hx of herpes genitalis Obesity (BMI 30.0-34.9) Exercise induced bronchospasm Surgical History History of surgery on right wrist Family History Father HTN (hypertension) Skin cancer Insomnia Substance use disorder Mental health disorder Maternal Grandmother Diabetes mellitus HTN (hypertension) Multiple myeloma Obese Mental health disorder Paternal Grandmother Oral cancer Mental health disorder Mother HTN (hypertension) Substance use disorder Mental health disorder Maternal Grandfather Substance use disorder Mental health disorder Paternal Grandfather Mental health disorder Sister Substance use disorder Mental health disorder Son No problems noted. Son No problems noted. Paternal Uncle Substance use disorder Mental health disorder Social History Household Members: Children Household Members Other:: 2 sons (7 and 5 y/o in 2019) Housing: House Alcohol intake: never Patient Tobacco Use Status: Never used Tobacco e-Cigarette/Vaping Use: Never Used service: No Current occupational status: employed Current occupation: [employer] Sexual orientation: Straight/Heterosexual Gender identity: Female Cognitive needs: No Hearing needs: No Vision needs: Yes Female Reproductive History Menstrual Age of Menarche: 14 Duration of menses: 3-5 days Date of last menstrual period: 04/18/25 control method: none Total pregnancies: 2 Full term: 2 Date of last pap smear: 06/07/23 History of abnormal pap smear: No History of STI: No Review of Systems Const All systems reviewed & are unremarkable except as noted in HPI and below Reports as per HPI Eyes Reports no additional complaints ENT Reports no additional complaints Card Reports no additional complaints Resp Reports no additional complaints GI Reports as per HPI and Reports no additional complaints Reports as per HPI Musc Reports no additional complaints Skin/Breast Reports as per HPI Neuro Reports no additional complaints Psych Reports no additional complaints Endo Reports no additional complaints Donny/Lymph Reports no additional complaints Aller/Immun Reports no additional complaints Physical Exam Vital Signs: Last Vital Signs BP 102/66 05/23/25 10:21 BMI result Body Mass Index 29.8 Const General: cooperative, healthy appearing, no acute distress, well developed and alert Orientation/consciousness: patient oriented x3 HEENT Head: Yes normal to inspection Eyes General: appearance normal, both eyes and all related structures Neck Neck: Yes normal visual inspection Thyroid: Thyroid normal Chest Chest palpation & inspection: normal inspection of the chest and other (no puckering, dimpling, peau de orange, retraction, discharge, masses) Breast/axilla inspection: normal inspection of the breasts Breast/axilla palpation: normal palpation of the breasts Resp Effort & Inspection: normal respiratory effort GI Inspection: Yes normal to inspection Palpation (GI): Soft to palpation Rectal Exam - Female: deferred General: Yes bladder normal to palpation External Female Exam: normal external appearance and normal appearance of the urethra Speculum Exam - Vagina: normal appearance of the vagina, normal palpation and normal vaginal discharge Speculum Exam - Cervix: normal appearance of the cervix and normal palpation Bimanual exam- vagina & uterus: normal bimanual exam, normal palpation, uterine size normal, bladder normal to palpation, normal palpation and non-tender Bimanual Exam- Adnexa, other: no masses Skin General skin exam: no rashes or lesions noted Rashes: no rashes Neuro General: patient oriented x3 Cognition (Neuro): normal cognition Extrem General: Yes normal to inspection Psych Attitude: cooperative Thought process: Normal thought process present Results AMB Test Urine AMB Test Urine Negative Last Edit by Megan Tejada LPN on 05/23/25 11:01 Assessment & Plan Assessment & Plan (1) Well woman exam with routine gynecological exam: Code(s): Z01.419 - Encounter for gynecological examination (general) (routine) without abnormal findings Category: Medical Plan Discussed: Current recommendations for pap smears per ASCCP guidelines. Breast awareness and periodic breast exams. Maintain a healthy lifestyle including a well balanced diet and routine exercise. Infertility specialty-patient to review insurance coverage and let me know which practice she would like to have a referral placed to. Advised to restart her vitamins to decrease the risk of neural tube defects. Rx sent to pharmacy. Use of a fertility aubree reviewed. Patient verbalizes understanding and agrees to the plan of care. She was given opportunity to ask questions and all questions were answered to the best of my ability. 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 This note is constructed using voice recognition software. While every effort has been made to ensure accuracy, communications consultant errors may have been included. Orders: Orders Bacterial Vaginosis Panel Today Z00.00 - Encounter for general adult medical examination without abnormal findings CT NG by PCR Vag/Cerv Today Z11.3 - Encounter for screening for infections with a predominantly sexual mode of transmission AMB HCG Urine Test Today N92.6 - Irregular menstruation, unspecified Medications: New PNV,calcium 25-chkg-mmmic acid 27 mg iron- 1 mg ( Vitamins Plus Low Iron) 1 tab PO DAILY 90 tabs 4RF Coding Level of Care Code Est Pt Prev Care 18-39y(81525) Diagnoses Well woman exam with routine gynecological exam Z01.419
[2025-05-23 10:21] VITALS: BP 102/66; BMI 29.8
== END 2025-05-23 11:07 | disposition home or self-care (01) ==
LOC: HO.HWS 09:50
PROVIDERS: PCP Internal Medicine; Visit Provider Advanced Practice Midwife
DX: Z01.419 Encounter for gynecological examination (general) (routine) without abnormal findings (principal); N92.6 Irregular menstruation, unspecified
CPT/HCPCS: 99395; 99459

== ENCOUNTER 2025-05-23 09:49 | Outpatient (REF) | payer OTHER, MEDICAID, SELFPAY ==
[2025-05-23 14:45] LABS: Bacterial Vaginosis PCR NEGATIVE (Negative); Candida Group PCR NOT DETECTED (Not Detect); Candida glab krusei PCR NOT DETECTED (Not Detect); Trichomonas vaginalis PCR NOT DETECTED (Not Detect)
[2025-05-23 15:17] LABS: CT PCR NOT DETECTED (Not Detect.); NG PCR NOT DETECTED (Not Detect.)
== END 2025-05-23 09:50 | disposition home or self-care (01) ==
LOC: HO.LNP 09:49
PROVIDERS: PCP Internal Medicine; Visit Provider Advanced Practice Midwife
DX: Z01.419 Encounter for gynecological examination (general) (routine) without abnormal findings (principal); Z11.3 Encounter for screening for infections with a predominantly sexual mode of transmission; N92.6 Irregular menstruation, unspecified; Z79.899 Other long term (current) drug therapy; Z80.3 Family history of malignant neoplasm of breast
CPT/HCPCS: 81025; 81515; 87491; 87591

== ENCOUNTER 2025-06-10 11:55 | Outpatient (AMB) | payer OTHER, SELFPAY ==
--- NOTE | 2025-06-10 09:23 | MHC.OFFVISPS ---
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 Pt reports adderall XR 20mg in am is very helpful. She reports her thinking is clearer and her mind isn't so busy; she feels that she can get things done more easily and is more organized. She is planning to take 4 classes at [employer] and working FT. She will likely take the adderall IR 10mg in the afternoon for night classes and homework. 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 she scored 18 on ADHD self report scale(anything over a score of 13 leans towards ADHD). She denies SI or HI Past Psychiatric History: hx of anxiety and depression in past had 3 visits outpt therapy -raising children didn't have time to continue Subjective Subjective Subjective Medication Compliance: Yes Side effects from medications: No Review of Systems Medical Review of Systems: unchanged Mental Status Exam Mental Status Exam Patient Appearance: Well Grooomed Patient Orientation: Person, Place and Time Level of Consciousness: Awake, Appropriate and Alert Patient Behavior: Appropriate, Talkative and Good Eye Contact Mood Description: Happy and Cheerful Affect Description: Happy and Cheerful Patient Cognition Impaired: No Ability to Follow Directions: Good Speech Pattern: Clear and Appropriate Memory Description: Intact Hallucinations: None Delusions: Not Present Thought Process: Intact and Goal Oriented Thought Content: positive for Intact and positive for Goal Oriented Judgement: Good Telehealth Telehealth Telehealth Platform: Other (please specify) (ana cristina.) Location of provider rendering services: practice address Location of patient: other (work in the [facility] ) Patient Identification confirmed using: Name, : Yes Telehealth method: video Patient verbally consented to treatment: Yes Patient verbally consented to billing insurance company: Yes Patient informed of any privacy concerns related to visit: Yes Minutes spent on Phone/Video with Pt.: 28 Assessment and Plan Assessment & Plan (1) ADHD, predominantly inattentive type: Status: Acute Code(s): F90.0 - Attention-deficit hyperactivity disorder, predominantly inattentive type Plan continue adderall XR 20mg in am daily take adderall IR 10mg in afternoon if needed follow up with PCP can be re-referred in futureif status changes Medications: Refilled dextroamphetamine-amphetamine 20 mg ER (Adderall XR) Partial Fill upon patient request. 20 mg PO QAM 30 caps 0RF F90.0 - Attention-deficit hyperactivity disorder, predominantly inattentive type dextroamphetamine-amphetamine 10 mg (Adderall) Partial Fill upon patient request. 10 mg PO DAILY@1630 PRN 30 tabs 0RF breakthrough ADHD symptoms F90.0 - Attention-deficit hyperactivity disorder, predominantly inattentive type Counseling and coordination of Care Pt. Self Management counseling: Maintenance-social rhythm, Mod caffeine/ETOH intake, Nutrition education and improvement, Sleep hygiene, Behavior activation and General coping skills Medication management counseling: Effectiveness, Side effects, Dosing range, Duration, Drug interaction and Adherence Diagnosis and Prognosis Counseling: Accuracy of diagnosis, Prognosis over time, Impact of diagnosis on life functions, Impact of family relationship, Problematic behaviors secondary to diagnosis and Adequacy of current interventions Details: I spent 32 minutes reviewing the record, seeing the patient and documenting in the medical record. Counseling provided to the patient/caregiver as outlined below. Addressed patient/caregiver concerns regarding current medication regime including effective adherence. Addressed patient/caregiver concerns regarding diagnosis and prognosis including accuracy of diagnosis, prognosis over time, impact of diagnosis. Addressed patient/caregiver concerns regarding impact of recent stressors. [facility], [facility] Medical History Generalized anxiety disorder Vitamin D deficiency Hypercholesterolemia without hypertriglyceridemia History of wrist fracture Hx of herpes genitalis Obesity (BMI 30.0-34.9) Exercise induced bronchospasm Surgical History History of surgery on right wrist Family History Father HTN (hypertension) Skin cancer Insomnia Substance use disorder Mental health disorder Maternal Grandmother Diabetes mellitus HTN (hypertension) Multiple myeloma Obese Mental health disorder Paternal Grandmother Oral cancer Mental health disorder Mother HTN (hypertension) Substance use disorder Mental health disorder Maternal Grandfather Substance use disorder Mental health disorder Paternal Grandfather Mental health disorder Sister Substance use disorder Mental health disorder Son No problems noted. Son No problems noted. Paternal Uncle Substance use disorder Mental health disorder Social History Household Members: Children Household Members Other:: 2 sons (7 and 5 y/o in 2019) Housing: House Alcohol intake: never Patient Tobacco Use Status: Never used Tobacco e-Cigarette/Vaping Use: Never Used service: No Current occupational status: employed Current occupation: [employer] [place] [employer] Sexual orientation: Straight/Heterosexual Gender identity: Female Cognitive needs: No Hearing needs: No Vision needs: Yes Coding Level of Care Code Tele Est Pt Level 4 (55488) Diagnoses ADHD, predominantly inattentive type F90.0
== END 2025-06-10 11:55 | disposition home or self-care (01) ==
LOC: HO.HOP 11:55
PROVIDERS: PCP Internal Medicine; Visit Provider Clinical Nurse Specialist Psychiatric/Mental Health
DX: F90.0 Attention-deficit hyperactivity disorder, predominantly inattentive type (principal)
CPT/HCPCS: 99214

== ENCOUNTER 2025-07-23 08:49 | Outpatient (REF) | payer OTHER, SELFPAY ==
--- NOTE | ~2025-07-23 | XR_ITS ---
EXAMINATION: XR KNEE, RIGHT CLINICAL INFORMATION: M25.569 - Pain in unspecified knee COMPARISON: None available. TECHNIQUE: AP oblique and lateral views of the right knee. FINDINGS: No acute cortical disruption or malalignment. No metallic or radiopaque foreign body. No lytic or blastic lesions. No suprapatellar bursa joint effusion. No soft tissue calcifications. XR/XR knee RT 4V IMPRESSION: Normal x-ray right knee Electronically signed by: Haseeb Vera MD 07/23/2025 10:08 AM EDT
--- NOTE | ~2025-07-23 | XR_ITS ---
EXAMINATION: XR KNEE, LEFT CLINICAL INFORMATION: M25.569 - Pain in unspecified knee COMPARISON: None available. TECHNIQUE: AP oblique and lateral views of the left knee. FINDINGS: No acute cortical disruption or malalignment no suprapatellar bursa joint effusion. No metallic or radiopaque foreign body. No soft tissue calcifications XR/XR knee LT 4V IMPRESSION: Normal x-ray, left knee. Electronically signed by: Haseeb Vera MD 07/23/2025 10:09 AM EDT
== END 2025-07-23 08:50 | disposition home or self-care (01) ==
LOC: HO.HMGCX 08:49
PROVIDERS: PCP Internal Medicine; Visit Provider Physician Assistant Medical
DX: M25.562 Pain in left knee (principal); M25.561 Pain in right knee
CPT/HCPCS: 73564

== ENCOUNTER 2025-07-23 08:49 | Outpatient (AMB) | payer OTHER, SELFPAY ==
[2025-07-23 08:53] VITALS: BP 110/68; PULSE 85; TEMP 36.4; O2SAT 98; BMI 29.3
--- NOTE | 2025-07-23 08:53 | MHC.OFFWIV ---
Intake Vital Signs 07/23/25 08:53 Height 5 ft 5 in Weight 176 lb BMI 29.3 BP 110/68 Blood Pressure Location Rt brachial Position Sitting Pulse 85 Pulse Source Pulse Oximeter Temp 97.5 F Temp Source Oral Pulse Oximetry (%) 98 Oxygen Delivery Method Room Air Intake Visit Reasons: EP Bilat knee pain Intake Note: pt presents with carla knee pain for about a week Patient Tobacco Use Status: Never used Tobacco Allergies No Known Allergies Allergy (Verified 07/23/25 08:56) Do you need a note to return to daycare/school/sports/work: No HPI HPI Comments History of Present Illness Details History of Present Illness - The patient is a 34-year-old female presenting with bilateral knee pain. - Reports intermittent knee pain with sensations of water retention, resolving within a day or two. - Pain exacerbated by stepping, localized upon palpation, with no significant fluid accumulation. - Pain is worse with extension of both of the knees. - History of high-impact sports participation, contributing to knee pain. - Concerned about potential arthritis, interested in x-rays for evaluation. - Prefers non-invasive management, apprehensive about injections and surgery. 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 - She denies trauma or falls. - She denies numbness, tingling, calf pain, foot pain, ankle pain, redness, or warmth. Physical Exam General: Cooperative, healthy appearing, comfortable, no acute distress and well developed Respiratory: Normal respiratory effort and able to speak in complete sentences. Clear to auscultation bilaterally Cardiovascular: Regular rate and rhythm. Normal S1 and S2 Skins: No rashes or lesions noted. Musculoskeletal: No swelling or deformity noted of the knees. FROM of the knees bilaterally. Click noted on the knees. TTP of the suprapatella region bilaterally noted. No TTP of the medial or lateral condyle or posterior fossa. TTP of the meniscus bilaterally. Negative anterior drawer test. Negative Ni noted. DTR are 1+ on the LE. Negative Homans noted. FROM of the ankle. Ambulates with a steady gait. Strength is 5/5 on the LE bilaterally. Neuro: Sensation is intact on the LE bilaterally. [facility] Medical History Generalized anxiety disorder Vitamin D deficiency Hypercholesterolemia without hypertriglyceridemia History of wrist fracture Hx of herpes genitalis Obesity (BMI 30.0-34.9) Exercise induced bronchospasm Surgical History History of surgery on right wrist Family History Father HTN (hypertension) Skin cancer Insomnia Substance use disorder Mental health disorder Maternal Grandmother Diabetes mellitus HTN (hypertension) Multiple myeloma Obese Mental health disorder Paternal Grandmother Oral cancer Mental health disorder Mother HTN (hypertension) Substance use disorder Mental health disorder Maternal Grandfather Substance use disorder Mental health disorder Paternal Grandfather Mental health disorder Sister Substance use disorder Mental health disorder Son No problems noted. Son No problems noted. Paternal Uncle Substance use disorder Mental health disorder Social History Household Members: Children Household Members Other:: 2 sons (7 and 5 y/o in 2020) Housing: House Alcohol intake: never Patient Tobacco Use Status: Never used Tobacco e-Cigarette/Vaping Use: Never Used service: No Current occupational status: employed Current occupation: [employer] [place] [employer] Sexual orientation: Straight/Heterosexual Gender identity: Female Cognitive needs: No Hearing needs: No Vision needs: Yes Female Reproductive History Menstrual Age of Menarche: 14 Review of Systems Const All systems reviewed & are unremarkable except as noted in HPI and below Physical Exam Vital Signs: Last Vital Signs Temp 97.5 F 07/23/25 08:53 Pulse 85 07/23/25 08:53 BP 110/68 07/23/25 08:53 Pulse Ox 98 07/23/25 08:53 Oxygen Delivery Method Room Air 07/23/25 08:53 BMI result Body Mass Index 29.3 Assessment & Plan Assessment & Plan (1) Bilateral knee pain: Code(s): M25.561 - Pain in right knee; M25.562 - Pain in left knee Qualifiers: Chronicity: acute Qualified Code(s): M25.561 - Pain in right knee; M25.562 - Pain in left knee Plan Most likely effusion vs arthritis vs strain vs ligamentous strain plan - rest, ice and elevation - will order x-rays - tylenol or motrin as needed for pain - can refer her to ortho for an evaluation - will refer her to PT - follow up with her PCP Orders: Orders PT Evaluation and Treatment Today M25.561 - Pain in right knee, M25.562 - Pain in left knee Coding Level of Care Code Est Pt Level 4 (31313) Diagnoses Acute pain of both knees M25.561; M25.562 Chronicity: acute
== END 2025-07-23 09:19 | disposition home or self-care (01) ==
PROVIDERS: PCP Internal Medicine; Visit Provider Physician Assistant Medical
DX: M25.561 Pain in right knee (principal); M25.562 Pain in left knee

== ENCOUNTER → 2025-07-23 09:37 | Outpatient (BNV) | payer OTHER, SELFPAY | PROVIDERS: PCP Internal Medicine; Visit Provider Radiology Diagnostic Radiology | DX: M25.561 Pain in right knee (principal); M25.562 Pain in left knee | CPT/HCPCS: 73564 ==

== ENCOUNTER 2025-08-22 10:49 | Outpatient (REF) | payer MEDICAID, SELFPAY ==
[2025-08-22 13:26] LABS: MANUAL DIFF FLAG NO
[2025-08-22 13:45] LABS: Hematocrit 37.6 % (37.0-47.0); Hemoglobin 12.9 g/dl (12.0-16.0); Imm Gran Abs Auto 0.02 X10*3/uL (0.00-0.03); Imm Gran Pct Auto 0.2 % (0.0-0.4); Lymphocytes Absolute Auto 2.3 X10*3/uL (1.2-4.9); Mean Corpuscular HGB Conc 34.3 g/dl (31.0-35.0); Mean Corpuscular Hemoglobin 30.6 pg (27.0-33.0); Mean Corpuscular Volume 89.1 fL (80.0-98.0); NRBC Abs Auto 0.000 X10*3/uL (0.0-0.012); NRBC Pct Auto 0.0 /100WBC (0.0-0.2); Platelet Count 180 X10*3/uL (160-400); Red Blood Count 4.22 X10*6/uL (4.20-5.50); White Blood Count 8.8 X10*3/uL (4.8-10.8)
[2025-08-22 14:06] LABS: Alanine Aminotransferase 14 U/L (0-31); Aspartate Amino Transferase 21 U/L (5-31)
[2025-08-22 14:33] LABS: Folate 10.2 ng/mL (> or = 4.0); Vitamin B12 567 pg/mL (200-900)
== END 2025-08-22 10:50 | disposition home or self-care (01) ==
LOC: HO.HMGCLDS 10:49
PROVIDERS: PCP Internal Medicine; Visit Provider Internal Medicine
DX: E78.00 Pure hypercholesterolemia, unspecified (principal); E66.9 Obesity, unspecified; E55.9 Vitamin D deficiency, unspecified; N92.6 Irregular menstruation, unspecified
CPT/HCPCS: 36415; 82306; 82607; 82746; 84207; 84450; 84460; 84702; 85025

== ENCOUNTER 2025-08-27 09:20 | Outpatient (REF) | payer MEDICAID, SELFPAY | END 2025-08-27 09:21 | disposition home or self-care (01) | LOC: HO.HMGCLDS 09:20 | PROVIDERS: PCP Internal Medicine; Visit Provider Advanced Practice Midwife | DX: Z34.90 Encounter for supervision of normal pregnancy, unspecified, unspecified trimester (principal) | CPT/HCPCS: 36415; 84702 ==

== ENCOUNTER 2025-09-27 08:16 | Outpatient (REF) | payer OTHER, MEDICAID, SELFPAY ==
[2025-09-27 11:59] LABS: Chlamydia pneumoniae PCR Not Detected (Not Detect.); Coronavirus 229E PCR Not Detected (Not Detect.); Coronavirus HKU1 PCR Not Detected (Not Detect.); Coronavirus NL63 PCR Not Detected (Not Detect.); Coronavirus OC43 PCR Not Detected (Not Detect.); RSV PCR Not Detected (Not Detect.); Rhino/Enterovirus PCR Not Detected (Not Detect.)
[2025-09-27 12:20] LABS: Influenza A H1 PCR Not Detected (Not Detect.); Influenza A H1-2009 PCR Not Detected (Not Detect.); Influenza A H3 PCR Not Detected (Not Detect.); SARS-CoV-2 PCR Not Detected (Not Detect.)
== END 2025-09-27 08:17 | disposition home or self-care (01) ==
LOC: HO.LAB 08:16
PROVIDERS: PCP Internal Medicine; Visit Provider Physician Assistant
DX: O99.513 Diseases of the respiratory system complicating pregnancy, third trimester (principal); J06.9 Acute upper respiratory infection, unspecified; B97.89 Other viral agents as the cause of diseases classified elsewhere; R05.9 Cough, unspecified; Z3A.00 Weeks of gestation of pregnancy not specified
CPT/HCPCS: 87633

== ENCOUNTER 2025-09-27 08:16 | Outpatient (AMB) | payer OTHER, MEDICAID, SELFPAY ==
--- NOTE | 2025-09-27 08:31 | AM.OFFWIN_ITS ---
Intake Vital Signs 09/27/25 08:33 Height 5 ft 5 in BMI Reason not done Patient refused/unable BP 112/54 L Blood Pressure Location Lt brachial Position Sitting Pulse 77 Pulse Source Pulse Oximeter Temp 98 F Temp Source Oral Pulse Oximetry (%) 99 Oxygen Delivery Method Room Air Intake Visit Reasons: EP cough Intake Note: Patient presents c/o cough with green, thick phlegm. Patient Tobacco Use Status: Never used Tobacco Allergies No Known Allergies Allergy (Verified 09/27/25 08:32) HPI HPI Comments History of Present Illness Details History - The patient is a 34-year-old female wh o is currently 8 weeks presenting with symptoms of a viral upper respiratory infection. - The patient reported the onset of symp toms a few weeks ago, including cough, congestion, and fatigue, which the patient attributed to . - The patient denied fever, wheezing, an d shortness of breath. - The patient described the mucus as gre en in color, with symptoms initially resolving over two to three weeks but then recurring. - The patient has not taken any over-the -counter medications due to . - The patient experiences nasal congesti on primarily in the morning and at night, with relief during the day. [facility] Medical History Generalized anxiety disorder Vitamin D deficiency Hypercholesterolemia without hypertriglyceridemia History of wrist fracture Hx of herpes genitalis Obesity (BMI 30.0-34.9) Exercise induced bronchospasm Surgical History History of surgery on right wrist Family History Father HTN (hypertension) Skin cancer Insomnia Substance use disorder Mental health disorder Maternal Grandmother Diabetes mellitus HTN (hypertension) Multiple myeloma Obese Mental health disorder Paternal Grandmother Oral cancer Mental health disorder Mother HTN (hypertension) Substance use disorder Mental health disorder Maternal Grandfather Substance use disorder Mental health disorder Paternal Grandfather Mental health disorder Sister Substance use disorder Mental health disorder Son No problems noted. Son No problems noted. Paternal Uncle Substance use disorder Mental health disorder Social History Household Members: Children Household Members Other:: 2 sons (7 and 5 y/o in 2019) Housing: House Alcohol intake: never Patient Tobacco Use Status: Never used Tobacco e-Cigarette/Vaping Use: Never Used service: No Current occupational status: employed Current [place]: [employer] [place] [employer] Sexual orientation: Straight/Heterosexual Gender identity: Female Cognitive needs: No Hearing needs: No Vision needs: Yes Female Reproductive History Menstrual Age of Menarche: 14 Review of Systems Narrative Review of Systems - Respiratory: Reports cough and congestion. Denies wheezing and shortness of breath. - General: Reports fatigue, likely related to . Denies fever. - ENT: Reports nasal congestion, particularly in the morning and at night. All systems reviewed and are unremarkable except as noted in HPI Physical Exam Exam Exam: Physical Exam General: Cooperative, healthy appearing, comfortable and no acute distress Orientation/consciousness: Patient oriented x3 Limitations: No limitations Head: Normal to inspection Ears: Hearing grossly normal bilaterally, external ears normal, EAC's normal bilaterally and TM's normal bilaterally Nose: Normal external nose present, Normal nares present and No nasal discharge present Face and sinus: Normal facial exam and sinuses nontender Mouth: Normal oral and palatal mucosa present and moist mucous membranes Throat: Tonsils very large, no exudates, uvula midline, posterior oropharynx erythema Eyes: Appearance normal, both eyes and all related structures Neck: Normal visual inspection, full ROM Respiratory: Clear to auscultation bilaterally. Normal respiratory effort, able to speak in complete sentences, actively coughing, no respiratory distress, not tachypneic, no tripod positioning and no use of accessory muscles Cardiovascular: Regular rate and rhythm. Normal S1 and S2 Skin: No rashes or lesions noted Neuro: Patient oriented x3 Extremities: Normal to inspection and Yes no clubbing, cyanosis or edema Vital Signs: Last Vital Signs Temp 98 F 09/27/25 08:33 Pulse 77 09/27/25 08:33 BP 112/54 L 09/27/25 08:33 Pulse Ox 99 09/27/25 08:33 Oxygen Delivery Method Room Air 09/27/25 08:33 Assessment & Plan Assessment & Plan (1) Viral URI with cough: Code(s): J06.9 - Acute upper respiratory infection, unspecified Plan Plan Patient was informed and verbally consented to the use of an ambient scribe for clinic note documentation during this visit. - VSS, pt well appearing and PE unremarkable. - Plan to conduct a full viral panel to identify the specific virus involved. - Consideration of antibiotic therapy if the viral panel returns negative results. - Recommendation for saline nasal spray to alleviate nasal congestion. - Discussion about the nature of rhinovirus as a common cold virus with no specific treatment other than symptomatic relief using OTC meds which are safe in . - Spoke with Daniele in lab, got the authorization to [place] [facility] [place]. Orders: Orders Resp Pathogen Panel [place] [facility] [place] J06.9 - Acute upper respiratory infection, unspecified Coding Level of Care Code Est Pt Level 3 (50642) Diagnoses Viral URI with cough J06.9
[2025-09-27 08:33] VITALS: BP 112/54; PULSE 77; TEMP 36.6; O2SAT 99
== END 2025-09-27 09:05 | disposition home or self-care (01) ==
PROVIDERS: PCP Internal Medicine; Visit Provider Physician Assistant
DX: J06.9 Acute upper respiratory infection, unspecified (principal)